=== PATIENT | female | born 1945 | race Caucasian/White ===

== ENCOUNTER → 2016-11-14 | Outpatient (CLI) | payer MEDICARE, OTHER ==
--- NOTE | 2016-11-14 10:20 | RAD ---
DATE: 11/14/2016 EXAM: MAMMO AMY SCREENING BILATERAL HISTORY: Screening. Note is made of the positive family history for breast malignancy. COMPARISON: 10/12/2015 This study was interpreted with the benefit of Computerized Aided Detection (CAD). FINDINGS: Breast Density: SCATTERED The breast parenchyma shows scattered fibroglandular densities. Breast parenchyma level B. There has not been a significant change in the appearance of the breasts compared to the previous exam IMPRESSION: Benign finding BI-RADS CATEGORY: 2 BENIGN FINDING(S) RECOMMENDED FOLLOW-UP: 12M 12 MONTH FOLLOW-UP PQRS compliance statement: Patient information was entered into a reminder system with a target due date 11/14/2017 for the next mammogram. Mammography is a sensitive method for finding small breast cancers, but it does not detect them all and is not a substitute for careful clinical examination. A negative mammogram does not negate a clinically suspicious finding and should not result in delay in biopsying a clinically suspicious abnormality. "Our facility is accredited by the [employer] Mammography Program."
== END | disposition home or self-care (01) ==
LOC: MAMMO 08:50
PROVIDERS: ATTEND Physician Assistant Medical
DX: Z12.31 Encounter for screening mammogram for malignant neoplasm of breast (principal)
CPT/HCPCS: 77063; G0202; 77067

== ENCOUNTER → 2017-05-06 | Outpatient (CLI) | payer MEDICARE, OTHER ==
--- NOTE | 2017-05-06 13:04 | RAD ---
DATE: 05/06/2017 EXAM: DIGITAL DIAGNOSTIC LT HISTORY: Left nipple discharge COMPARISON: 11/14/2016, 10/12/2015 This study was interpreted with the benefit of Computerized Aided Detection (CAD). The breast parenchyma shows scattered fibroglandular densities. Breast parenchyma level B. FINDINGS: 2-D and 3-D tomosynthesis imaging of the left breast was obtained in the CC and MLO projections. There are scattered fibroglandular densities in the breast in a nodular pattern. There are several discrete smooth nodules in the left breast which appear unchanged. No new or enlarging breast densities seen. There are multiple benign secretory type calcifications in the left breast. There are several additional scattered clusters of microcalcifications which are also unchanged. IMPRESSION: Stable left breast nodules and microcalcifications as described above. If a reproducible breast discharge is present, galactography may be considered for further evaluation. BI-RADS CATEGORY: 0 INCOMPLETE: NEEDS ADDITIONAL IMAGING EVALUATION AND/OR PRIOR MAMMOGRAMS FOR COMPARISON. RECOMMENDED FOLLOW-UP: ADD ADDITIONAL IMAGING PQRS compliance statement: Patient information was entered into a reminder system with a target due date for the next mammogram. Mammography is a sensitive method for finding small breast cancers, but it does not detect them all and is not a substitute for careful clinical examination. A negative mammogram does not negate a clinically suspicious finding and should not result in delay in biopsying a clinically suspicious abnormality. "Our facility is accredited by the [employer] Mammography [employer]."
== END | disposition home or self-care (01) ==
LOC: MAMMO 09:34
PROVIDERS: ATTEND Physician Assistant Medical
DX: N63.20 Unspecified lump in the left breast, unspecified quadrant (principal); N64.52 Nipple discharge; R92.0 Mammographic microcalcification found on diagnostic imaging of breast; R92.1 Mammographic calcification found on diagnostic imaging of breast
CPT/HCPCS: G0206; 77065

== ENCOUNTER → 2018-01-20 | Outpatient (CLI) | payer MEDICARE, OTHER ==
--- NOTE | 2018-01-20 11:45 | RAD ---
DATE: January 20, 2018 EXAM: MAMMO AMY SCREENING BILATERAL HISTORY: Routine screening. COMPARISON: Priors back to October 12, 2015. TECHNIQUE: 2D digital CC and MLO views were obtained. 3D tomosynthesis imaging was performed in the CC and MLO projections. This study was interpreted with the benefit of Computerized Aided Detection (CAD). FINDINGS: The breast parenchyma demonstrates scattered fibroglandular densities, category B. There is no worrisome mass or area of architectural distortion. Secretory and other benign-appearing calcifications are noted bilaterally. These are stable. There are postoperative findings of lumpectomy on the left, at the 3:00 position extending retroareolar. IMPRESSION: Benign findings. BI-RADS CATEGORY: 2 BENIGN FINDING RECOMMENDED FOLLOW-UP: 12M 12 MONTH FOLLOW-UP PQRS compliance statement: Patient information was entered into a reminder system with a target due date for the next mammogram. Mammography is a sensitive method for finding small breast cancers, but it does not detect them all and is not a substitute for careful clinical examination. A negative mammogram does not negate a clinically suspicious finding and should not result in delay in biopsying a clinically suspicious abnormality. "Our facility is accredited by the [employer] Mammography Program."
== END | disposition home or self-care (01) ==
LOC: MAMMO 09:55
PROVIDERS: ATTEND Physician Assistant Medical
DX: Z12.31 Encounter for screening mammogram for malignant neoplasm of breast (principal)
CPT/HCPCS: 77063; 77067

== ENCOUNTER → 2019-04-05 | Outpatient (CLI) | payer MEDICARE, OTHER ==
--- NOTE | 2019-04-05 09:23 | CARD ---
MR#: [id number] Date of Study: 04/05/2019 Ordering Physician: RADHA BOCANEGRA, Referring Physician: RADHA BOCANEGRA, Tech: Pamela Aden SHU APPROVED REPORT EXAM: Two-dimensional and M-mode echocardiogram with Doppler and color Doppler. Other Information Quality : AverageHR: 90bpm Rhythm : NSR INDICATION Chest Pain 2D DIMENSIONS RVDd3.0 (2.9-3.5cm)Left Atrium(2D)3.2 (1.6-4.0cm) IVSd1.1 (0.7-1.1cm)Aortic Root(2D)2.8 (2.0-3.7cm) LVDd4.8 (3.9-5.9cm)LVOT Diameter1.9 (1.8-2.4cm) PWd0.9 (0.7-1.1cm)LVDs3.4 (2.5-4.0cm) FS (%) 27.7 %SV56.5 ml LVEF(%)53.7 (>50%) M-Mode DIMENSIONS Left Atrium(MM)3.37 (2.5-4.0cm)Aortic Root3.23 (2.2-3.7cm) Aortic Valve AoV Peak Francis.143.2cm/Minoo Peak GR.8.2mmHg LVOT Peak Francis.103.4cm/sLVOT VTI 25.24cm RUTHIE (VMAX)2.41mt1TBJ (VTI)2.20cm2 Mitral Valve MV E Hgpstzgz22.0cm/sMV DECEL [id number] MV A Exiunipv057.0cm/sE/A Ratio0.8 Pulmonary Valve PV Peak Cqxtlkaq260.6cm/sPV Peak Grad.5mmHg Tricuspid Valve TR P. Qtwegvoi288yu/sRAP GDCETGKB1yuYl TR Peak Gr.24buAyGADP27wcJa LEFT VENTRICLE The left ventricle is normal size. There is normal left ventricular wall thickness. The left ventricu lar systolic function is normal. The Ejection Fraction is 55-60%. There is normal LV segmental wall m otion. Transmitral Doppler flow pattern is Grade I-abnormal relaxation pattern. RIGHT VENTRICLE The right ventricle is normal size. There is normal right ventricular wall thickness. The right ventr icular systolic function is normal. ATRIA The left atrium size is normal. The right atrium size is normal. The interatrial septum is intact wit h no evidence for an atrial septal defect or patent foramen ovale as noted on 2-D or Doppler imaging. AORTIC VALVE The aortic valve is normal in structure and function. The aortic valve is trileaflet. Doppler and Col or Flow revealed trace aortic regurgitation. There is no significant aortic valvular stenosis. There is no aortic valvular vegetation. MITRAL VALVE The mitral valve is normal in structure and function. There is no evidence of mitral valve prolapse. There is no mitral valve stenosis. Doppler and Color-flow revealed trace mitral regurgitation. TRICUSPID VALVE The tricuspid valve is normal in structure and function. Doppler and Color Flow revealed trace tricus pid regurgitation. The PA pressure was estimated at 28 mmHg. There is no tricuspid valve prolapse or vegetation. There is no tricuspid valve stenosis. PULMONIC VALVE The pulmonic valve is not well visualized. GREAT VESSELS The aortic root is normal in size. The ascending aorta is normal in size. The IVC is normal in size a nd collapses >50% with inspiration. PERICARDIAL EFFUSION There is no evidence of significant pericardial effusion. Critical Notification Critical Value: No <Conclusion> The left ventricular systolic function is normal. The Ejection Fraction is 55-60%. There is normal LV segmental wall motion. Transmitral Doppler flow pattern is Grade I-abnormal relaxation pattern. Trace mitral regurgitation. Trace tricuspid regurgitation. The PA pressure was estimated at 28 mmHg. There is no evidence of significant pericardial effusion. Signed by : Arnold Briscoe, Electronically Approved : 04/05/2019 09:23:13
== END | disposition home or self-care (01) ==
LOC: ECHO 07:49
PROVIDERS: ATTEND Internal Medicine Cardiovascular Disease
DX: R07.9 Chest pain, unspecified (principal)
CPT/HCPCS: 93306

== ENCOUNTER → 2019-04-06 | Outpatient (CLI) | payer MEDICARE, OTHER ==
--- NOTE | 2019-04-08 10:02 | RAD ---
DATE: 08/07/2018 EXAM: MAMMO AMY SCREENING BILATERAL HISTORY: Routine screening. Benign left breast biopsy in 2018. COMPARISON: 01/20/2018, 11/14/2016, 10/12/2015 mammographic exams This study was interpreted with the benefit of Computerized Aided Detection (CAD). Breast Density: HETERO The breast parenchyma is heterogenously dense, which could reduce sensitivity of mammography. Breast parenchyma level C. FINDINGS: Distortion involving the left breast is stable correspond to previous biopsy. No suspicious calcifications. No suspicious distortion. Small mass at the right upper outer breast posteriorly approximately 9 cm from the nipple is present. This may represent a lymph node although it is not definitely seen on prior exams. It measures 0.8 cm diameter. Small asymmetry is present lateral to this on the CC view. This asymmetry may present on prior exams. IMPRESSION: Right posterior upper outer breast mass which likely represents a lymph node. Asymmetry lateral to this finding on the CC projection noted. BI-RADS CATEGORY: 0 INCOMPLETE: NEEDS ADDITIONAL IMAGING EVALUATION AND/OR PRIOR MAMMOGRAMS FOR COMPARISON. FOLLOW-UP: ADD ADDITIONAL IMAGING. Spot compression imaging of the right upper-outer breast mass in the CC and MLO projections is recommended. Ultrasound of the right upper-outer breast may be needed. PQRS compliance statement: Patient information was entered into a reminder system with a target due date pending further imaging for the next mammogram. Mammography is a sensitive method for finding small breast cancers, but it does not detect them all and is not a substitute for careful clinical examination. A negative mammogram does not negate a clinically suspicious finding and should not result in delay in biopsying a clinically suspicious abnormality. "Our facility is accredited by the [employer] Mammography Program."
== END | disposition home or self-care (01) ==
LOC: MAMMO 08:37
PROVIDERS: ATTEND Physician Assistant Medical
DX: N63.11 Unspecified lump in the right breast, upper outer quadrant (principal)
CPT/HCPCS: 77063; 77067

== ENCOUNTER → 2019-04-26 | Outpatient (CLI) | payer MEDICARE, OTHER ==
--- NOTE | 2019-04-26 18:31 | RAD ---
DATE: 04/26/2019 EXAM: DIGITAL DIAGNOSTIC RT, BREAST RIGHT HISTORY: Abnormal mammogram COMPARISON: 10/12/2015, 11/14/2016, 01/20/2018 mammographic exams This study was interpreted with the benefit of Computerized Aided Detection (CAD). Breast Density: SCATTERED The breast parenchyma shows scattered fibroglandular densities. Breast parenchyma level B. FINDINGS: Persistence of the asymmetry at the outer aspect of the right breast is noted on spot compression imaging in the CC projection. A small lucency is noted within this structure which may represent a hilum of a lymph node. This asymmetry may have a finding on spot compression imaging in the upper right breast on the MLO view. These findings are smoothly marginated. A smaller asymmetry is identified persist but appears to be present on 01/20/2018. Limited ultrasound examination of the right upper-outer breast does not demonstrate a mass or nodule. IMPRESSION: Right upper outer breast asymmetry which may represent a lymph node. BI-RADS CATEGORY: 3 PROBABLY BENIGN FINDING(S)-SHORT INTERVAL FOLLOW-UP SUGGESTED RECOMMENDED FOLLOW-UP: 6M 6 MONTH FOLLOW-UP. Six-month follow-up mammographic examination of the right breast is recommended to assess stability. Ultrasound may be needed at that time. PQRS compliance statement: Patient information was entered into a reminder system with a target due date for the next mammogram. Mammography is a sensitive method for finding small breast cancers, but it does not detect them all and is not a substitute for careful clinical examination. A negative mammogram does not negate a clinically suspicious finding and should not result in delay in biopsying a clinically suspicious abnormality. "Our facility is accredited by the [employer] Mammography Program."
== END | disposition home or self-care (01) ==
LOC: MAMMO 12:20
PROVIDERS: ATTEND Physician Assistant Medical
DX: R92.2 Inconclusive mammogram (principal)
CPT/HCPCS: 76641; 77065

== ENCOUNTER 2019-10-26 13:42 | Inpatient (IN) | payer MEDICARE, OTHER ==
[~2019-10-26] VITALS: Ht 167.6 cm; Wt 93.1 kg
[2019-10-26 14:15] VITALS: BP 94/61
--- NOTE | 2019-10-26 14:37 | NUR ---
NURSING NOTE ADMIT PT DIRECT ADMIT FROM DR BAUMANN OFFICE WITH DX OF DEHYDRATION, DIARRHEA X 10 DAYS, INCREASE WBC COUNT. PT REPORTS WEIGHT LOSS OF ABOUT 10 POUNDS. PT STATES SHE HAS HAD DIARRHEA FOR TWO WEEKS, WAS SEEN TWICE, GIVEN FLUIDS, NO RELIEF. PT STATES SHE IS DIZZY AND LIGHT HEADED. PT STATES SHE HAS A DRY COUGH THAT STARTED 2 OR 3 DAYS AGO. PT VOICED SHORTNESS OF AIR WHEN MOVING FROM WHEELCHAIR TO BED BUT DENIED TO PHYSICIAN. PT IS ON ROOM AIR. PT SETTLED IN BED. DR OLAERY AT BEDSIDE. BANDAR LUJAN.
[2019-10-26 14:54] LABS: CALCIUM 8.9 mg/dL (8.5-10.1); CREATININE 3.8 mg/dL (0.6-1.0); GFR 11.7
[2019-10-26 15:00] LABS: ALBUMIN 2.3 g/dL (3.4-5.0); ALBUMIN/GLOBULIN RATIO 0.6 (1.0-1.7); TOTAL PROTEIN 6.3 g/dL (6.4-8.2)
[2019-10-26] MEDS ORDERED: IV NORMAL SALINE 1,000ML 1,000 ML IV ONE (15:00)
[2019-10-26] MEDS ORDERED: DEXTROSE 50% 25 GM / 50ML DISP.SYRIN. IV PRN (15:00)
[2019-10-26 15:03] LABS: POTASSIUM 4.7 mmol/L (3.5-5.1)
[2019-10-26 15:07] LABS: BASO # 0.1 x10^3/uL (0.0-0.2); BASO % 0 % (0-3); EOS # 0.2 x10^3/uL (0.0-0.7); EOS % 1 % (0-3); HEMATOCRIT 32.7 % (36.0-47.0); HEMOGLOBIN 10.6 g/dL (12.0-15.5); LYMPH # 1.4 x10^3/uL (1.0-4.8); LYMPH % 4 % (24-48); MEAN CORPUSCULAR HEMOGLOBIN 31 pg (25-35); MEAN CORPUSCULAR HGB CONC 33 g/dL (31-37); MEAN CORPUSCULAR VOLUME 95 fL (79-100); MONO # 0.9 x10^3/uL (0.0-1.1); MONO % 3 % (0-9); NEUT % 93 % (31-73); PLATELET COUNT 228 x10^3/uL (140-400); RED BLOOD COUNT 3.45 x10^6/uL (3.50-5.40); RED CELL DISTRIBUTION WIDTH 16.8 % (11.5-14.5)
[2019-10-26 15:15] LABS: WHITE BLOOD COUNT 33.5 x10^3/uL (4.0-11.0)
[2019-10-26] MEDS ORDERED: ASPI-630 PO (15:19)
[2019-10-26] MEDS ORDERED: ESTR0.45 PO (15:19)
[2019-10-26] MEDS ORDERED: GLIM4TAB8 PO (15:19)
[2019-10-26] MEDS ORDERED: ONDA8TAB17 PO (15:19)
[2019-10-26] MEDS ORDERED: LOSA25TA11 PO (15:19)
[2019-10-26] MEDS ORDERED: GABA100C6 PO (15:19)
[2019-10-26] MEDS ORDERED: IRON1CAP14 PO (15:19)
[2019-10-26] MEDS ORDERED: CYAN25003 SL (15:19)
[2019-10-26] MEDS ORDERED: ACET325T21 PO (15:19)
[2019-10-26] MEDS ORDERED: COLC0.6T42 PO (15:19)
[2019-10-26] MEDS ORDERED: ALLO300T PO (15:19)
[2019-10-26] MEDS ORDERED: ESOM40CA PO (15:19)
[2019-10-26] MEDS: IV NORMAL SALINE 1,000ML 1,000 ML IV SCH (15:27)
[2019-10-26] MEDS ORDERED: ACETAMINOPHEN 325 MG TABLET PO PRN (15:30)
--- NOTE | 2019-10-26 15:33 | HP ---
ADMIT DATE: 10/26/2019 HISTORY OF PRESENT ILLNESS: The patient is a 74-year-old female patient who was admitted directly from her primary care physician's office and she has had diarrhea that has been going on for almost 2 weeks. It is not associated with any nausea or vomiting. There is no blood in the stool. Denied any abdominal pain. Denied any chills, rigors or fever. Did complain of dizziness and lightheadedness. The patient stated that all this started about more than 2 weeks ago when she was diagnosed with severe sinusitis and was given treatment with antibiotic that she cannot remember. She completed a 10-day course of it and after which her symptoms continued; therefore, she was started on ciprofloxacin 500 mg twice a day. She has started having diarrhea about 2 weeks ago and has not really subsided. Attempts have been made to treat her as an outpatient, but the patient continued to have severe diarrhea, which is watery in nature and therefore, she was admitted directly for rehydration and stool was sent for C. diff toxin, the result of which is still pending at the time of this dictation. PAST MEDICAL HISTORY: Significant for insulin requiring type 2 diabetes mellitus and hypertension. He has diabetic neuropathy and what seems to be also diabetic autonomic neuropathy. She has also chronic kidney disease. She is also known to have hyperlipidemia, obesity, and has had prior history of melena and anemia. PAST SURGICAL HISTORY: Significant for bilateral cataract extraction, cholecystectomy, total abdominal hysterectomy, bilateral salpingo-oophorectomy. She has also had appendectomy and had a left breast mass with normal biopsy. FAMILY HISTORY: She has 2 brothers, 1 older and has some form of spinal cord embolism and the other one is younger and has had a history of myocardial infarction. Her father at age of 72 because of lung cancer. Mother at age of 58 because of breast cancer. SOCIAL HISTORY: She is and lives with her . She has one daughter. She smoked for 2 years now when she was 19 and 20 years old. She does not drink alcohol or use any recreational drugs. She worked for the [employer] at [place]. She is currently retired. REVIEW OF SYSTEMS: The patient denied any blurring of vision, has had bilateral cataract extraction, but denied any glaucoma or macular degeneration. Denied any earache, tinnitus or sensorineural deafness. Denied any nosebleeds, stuffy nose or postnasal drip. Denied any sore throat, sore tongue, toothache, hoarseness of voice or difficulty swallowing. Denied any nausea, vomiting, but has persistent diarrhea that has been going on. Denied any melena or hematochezia. Denied any dysuria, frequency or hematuria. Denied any chest pain, shortness of breath, orthopnea, paroxysmal nocturnal dyspnea. Did complain of cough that started only 2 days ago, which was mostly dry. Denied any chills, rigors, or fever. She did complain of dizziness and lightheadedness, but denied any vertigo. PHYSICAL EXAMINATION: GENERAL: When I saw her this afternoon, she was resting slightly propped up in bed. She was pale, but no jaundice, cyanosis or thyromegaly. No jugular venous distention. No lower limb. VITAL SIGNS: Her heart rate was 100, blood pressure 94/61, respiratory rate 22, temperature 97.6 and her oxygen saturation was 100% on room air. HEAD, EYES, EARS, NOSE AND THROAT: Showed normocephalic, atraumatic. NECK: Supple. HEART: Showed normal first and second heart sounds with no gallop, rub or murmur. CHEST: Clear to auscultation. No crepitation or rhonchi. ABDOMEN: Distended, soft, nontender. NEUROLOGIC: She is awake, alert, responding appropriately. All cranial nerves intact. EXTREMITIES: She moves extremities without difficulty. She ambulates without assistance or assistive devices. LABORATORY DATA: Her lab work done yesterday showed her white cell count was 28,000, her hemoglobin was 11, hematocrit 32, MCV was 91, and a platelet count of 189,000 with a manual differential showed 88% polymorphs, 4% lymphocytes, and 6% monocytes. Her chemistry showed that her serum sodium was 134, her potassium was 4.9, chloride 99, bicarbonate was 18. Calcium was 9.1. Total bilirubin 1.3. AST, ALT, alkaline phosphatase were all normal. Her total protein was 6.2, albumin was 3.5. PLAN: My plan is to start her on IV fluid. We will send stat labs including CBC, CMP and lactic acid. Also we are going to have a CT scan of the chest, abdomen and pelvis without contrast and if there are any changes in her lungs consistent of ground glass appearance, we COVID-19 by PCR. We will keep her on isolation for now and await the result also for the C. diff and if there is any evidence of wall thickening of the colon, I will start her empirically on vancomycin until we get the result of the C. diff toxins. We will start her also on IV fluid. KAPIL OLEARY MD DR: JUANITO/nikolas JOB#: [id number] / [id number]
[2019-10-26 15:39] LABS: % BANDS 5 % (0-9); % LYMPHS 5 % (24-48); % MONOS 3 % (0-10); % SEGS 87 % (35-66); PLT ESTIMATE ADEQUATE (ADEQUATE)
--- NOTE | 2019-10-26 15:47 | RAD ---
Examination: CT of the chest abdomen pelvis without contrast HISTORY: History of cough, intractable diarrhea COMPARISON: None available Technique: Axial CT images of the chest abdomen pelvis were performed without IV contrast. Coronal and sagittal images are performed Exposure: One or more of the following individualized dose reduction techniques were utilized for this examination: 1. Automated exposure control 2. Adjustment of the mA and/or kV according to patient size 3. Use of iterative reconstruction technique FINDINGS: The central airways are patent. The heart size grossly appears unremarkable. No radiologically significant mediastinal lymphadenopathy identified. Scattered subcentimeter lymph nodes identified in the bilateral lungs the largest measuring 5 mm in the left lower lobe of the lung. No evidence of pleural effusion or pneumothorax. No evidence of free air identified in the abdomen. The evaluation of the solid organs is limited due to lack of IV contrast. The evaluation of bowel is limited due to lack of oral contrast.. The visualized liver, spleen, adrenals grossly appears unremarkable. Small perihepatic, perisplenic fluid is identified. The visualized pancreas grossly appears unremarkable. The small bowel is nondilated. There is moderate diffuse thickening of the wall of the colon throughout with surrounding infiltrative fat stranding likely diffuse colitis. The appendix is not well-visualized. Small amount of free fluid identified in the pelvis. Urinary bladder is mildly distended. No evidence of intrarenal collecting system calculi or hydronephrosis. There is a small hypodensity identified in the right kidney measuring 9 mm probably hyperdense cyst. Moderate degenerative changes thoracic and lumbar spine. Mild sclerosis identified in the right and left femoral heads could be avascular necrosis. Impression: 1. Diffuse thickening of the wall of the colon with surrounding inflammatory fat stranding likely diffuse colitis/infectious or inflammatory or pseudomembranous colitis. Correlate with lab values. 2. Mild ascites. 3. Few scattered bilateral subcentimeter nodules identified in the lungs with the largest measuring 5 mm in the left lobe of the lung. Follow-up in 6 months per Fleischner Society guidelines. 4. Small hyperdense cyst left kidney. Electronically signed by: Jovon Thakur MD (10/26/2019 3:44 PM) [id number]
[2019-10-26] MEDS ORDERED: ONDANSETRON ODT 4 MG TAB.RAPDIS PO PRN (16:00)
--- NOTE | 2019-10-26 16:00 | NUR ---
NURSING NOTE SEPSIS SCREEN BLOOD CULTURES ORDERED. NO IV ANTIBIOTICS NEED AT THIS TIME PER DR OLEARY. WILL ORDER PO VANCO. PT HAD RECEIVED 1 LITER BOLUS UPON ARRIVAL. CURRENTLY ON NS AT 125/HR. WILL CONTINUE TO MONITOR. BANDAR LUJAN.
[2019-10-26] MEDS: INSULIN LISPRO 300 UNITS/3 ML VIAL. SQ SCH (16:56)
[2019-10-26] MEDS: VANCOMYCIN 125 MG/2.5 ML ORAL SOLUTION. PO SCH ×2 (17:20→20:51)
[2019-10-26 17:27] VITALS: BP 100/65
[2019-10-26] MEDS: GABAPENTIN 100 MG CAPSULE. PO SCH (20:51)
[2019-10-26 21:53] VITALS: BP 102/61
[2019-10-27] MEDS: IV NORMAL SALINE 1,000ML 1,000 ML IV SCH ×4 (00:10→22:49)
[2019-10-27 05:57] LABS: HEMATOCRIT 27.2 % (36.0-47.0); HEMOGLOBIN 8.9 g/dL (12.0-15.5); RED BLOOD COUNT 2.9 x10^6/uL (3.50-5.40); RED CELL DISTRIBUTION WIDTH 16.2 % (11.5-14.5); WHITE BLOOD COUNT 23.5 x10^3/uL (4.0-11.0)
[2019-10-27 06:10] LABS: ALBUMIN 1.8 g/dL (3.4-5.0); ALBUMIN/GLOBULIN RATIO 0.6 (1.0-1.7); CREATININE 3.3 mg/dL (0.6-1.0); GFR 13.7; POTASSIUM 3.9 mmol/L (3.5-5.1); TOTAL BILIRUBIN 0.5 mg/dL (0.2-1.0)
[2019-10-27 06:30] VITALS: BP 89/56
[2019-10-27] MEDS: INSULIN LISPRO 300 UNITS/3 ML VIAL. SQ SCH ×3 (08:00→17:00)
[2019-10-27] MEDS: PANTOPRAZOLE 40 MG TABLET. PO SCH (08:01)
[2019-10-27] MEDS: GLIMEPIRIDE 2 MG TABLET PO SCH (08:02)
[2019-10-27] MEDS: VANCOMYCIN 125 MG/2.5 ML ORAL SOLUTION. PO SCH ×4 (08:02→20:40)
[2019-10-27] MEDS: LACTOBACILLUS RHAMNOSUS GG 1 CAPSULE. PO SCH (08:02)
[2019-10-27] MEDS: ASPIRIN CHEWABLE 81 MG TABLET. PO SCH (08:02)
[2019-10-27] MEDS: CYANOCOBALAMIN (VITAMIN B-12) 1,000 MCG TABLET. PO SCH (08:03)
[2019-10-27] MEDS: ALLOPURINOL 100 MG TABLET. PO SCH (08:04)
[2019-10-27 08:15] VITALS: BP 90/56
[2019-10-27] MEDS: ESTROGENS CONJUGATED PO SCH (08:19)
[2019-10-27] MEDS ORDERED: IV NORMAL SALINE 1,000ML 1,000 ML IV ONE (08:45)
[2019-10-27] MEDS ORDERED: NON FORMULARY ITEM (Esomeprazole Magnesium (Nexium Capsule) 1 CAP) PO SCH (09:00)
--- NOTE | 2019-10-27 09:04 | NUR ---
NURSING NOTE PT BLOOD PRESSURE THIS AM WAS LOW, RECHECKED AFTER SHIFT CHANGE, PT FEELS DIZZY, SPOKE WITH DR OLEARY, ORDER OBTAINED FOR 1 LITER BOLUS. FINISHING UP NOW, WILL CONTINUE TO MONITOR. BANDAR LUJAN.
[2019-10-27 09:51] VITALS: BP 95/60
--- NOTE | 2019-10-27 11:43 | PN ---
DATE: 10/27/2019 SUBJECTIVE: The patient is resting, slightly propped up in bed, no apparent distress, sleepy but arousable on questioning her. She obviously continued to have diarrhea, although much less than yesterday. Denied any abdominal pain. Denied any nausea, vomiting; however, she continued to have anorexia and poor oral intake. PHYSICAL EXAMINATION: GENERAL: When I examined her, she looked pale, but no jaundice, cyanosis or thyromegaly. No jugular venous distention. No lower limb edema. VITAL SIGNS: Her heart rate was 92, blood pressure was 95/60, temperature was 98.1, respiratory rate was 18 and oxygen saturation was 99% on room air. HEAD, EYES, EARS, NOSE AND THROAT: Showed normocephalic, atraumatic. NECK: Supple. CARDIAC: Normal first and second heart sounds. No gallop, rub or murmur. CHEST: Clear to auscultation. No crepitation or rhonchi. ABDOMEN: Distended, soft, nontender. No guarding or rigidity. No organomegaly. All hernial orifices intact. Bowel sounds normal. NEUROLOGIC: She is awake, alert, responding appropriately. All cranial nerves intact. She moves extremities without difficulty. Her intake over the last 24 hours and output were incompletely recorded. LABORATORY DATA: Her lab work this morning showed a serum sodium of 132, potassium 3.9, chloride 100, bicarbonate 21, anion gap of 11, BUN 57, creatinine 3.3, estimated GFR was 13.7 mL. Her glucose was 48, calcium was 8. Total bilirubin, AST, ALT, alkaline phosphatase were normal. Total protein was 5 and albumin was 1.8. Her white cell count is down to 23,500, hemoglobin 8.9, hematocrit 27, MCV 94 and platelet count of 172,000. ASSESSMENT: 1. Intractable diarrhea, most likely due to Clostridium difficile colitis. 2. Acute on chronic kidney injury, resolving. Her creatinine is coming down from 3.8 to 3.3. 3. Hyponatremia, improved. Her serum sodium went up from 127 to 132. OTHER MEDICAL PROBLEMS: Include: A. Insulin-requiring type 2 diabetes mellitus. B. Hypertension, however, the patient is hypotensive. C. Diabetic neuropathy and also diabetic autonomic neuropathy. D. Hyperlipidemia as well as normochromic normocytic anemia. PLAN: To continue with IV fluid. The patient was given another liter of normal saline bolus and increase at a rate of 150 mL per hour. Continue with oral vancomycin 125 mg 4 times a day together with probiotic and other medications. Continue to monitor blood sugar and adjust insulin as needed. KAPIL OLEARY MD DR: JUANITO/nikolas JOB#: [id number] / [id number]
[2019-10-27 12:51] LABS: BILIRUBIN,URINE NEG (NEG); CLARITY,URINE HAZY; COLOR,URINE YELLOW; GLUCOSE,URINE NEG (NEG); NITRITE,URINE NEG (NEG); UROBILINOGEN,URINE 0.2 mg/dL (0.2 mg/dL)
[2019-10-27 12:52] LABS: BACTERIA,URINE FEW /HPF (0-FEW); HYALINE CASTS, URINE FEW /HPF; SQUAMOUS EPITHELIAL CELL,UR MANY /LPF
[2019-10-27 15:28] VITALS: BP 102/66
[2019-10-27 19:00] VITALS: BP 99/65
[2019-10-27] MEDS: GABAPENTIN 100 MG CAPSULE. PO SCH (20:40)
[2019-10-27 22:59] VITALS: BP 98/63
[2019-10-28] MEDS: IV NORMAL SALINE 1,000ML 1,000 ML IV SCH ×3 (03:17→21:23)
[2019-10-28 05:59] VITALS: BP 91/58
[2019-10-28 06:22] LABS: HEMATOCRIT 27.6 % (36.0-47.0); RED BLOOD COUNT 2.91 x10^6/uL (3.50-5.40); RED CELL DISTRIBUTION WIDTH 16.6 % (11.5-14.5); WHITE BLOOD COUNT 18.5 x10^3/uL (4.0-11.0)
[2019-10-28 06:28] LABS: ALBUMIN 1.6 g/dL (3.4-5.0); ALBUMIN/GLOBULIN RATIO 0.5 (1.0-1.7); CALCIUM 7.9 mg/dL (8.5-10.1); GFR 15.3; POTASSIUM 4.1 mmol/L (3.5-5.1); TOTAL BILIRUBIN 0.4 mg/dL (0.2-1.0); TOTAL PROTEIN 4.9 g/dL (6.4-8.2)
[2019-10-28] MEDS: INSULIN LISPRO 300 UNITS/3 ML VIAL. SQ SCH ×3 (08:00→17:00)
[2019-10-28] MEDS: PANTOPRAZOLE 40 MG TABLET. PO SCH (08:10)
[2019-10-28] MEDS: ASPIRIN CHEWABLE 81 MG TABLET. PO SCH (08:10)
[2019-10-28] MEDS: LACTOBACILLUS RHAMNOSUS GG 1 CAPSULE. PO SCH (08:10)
[2019-10-28] MEDS: GLIMEPIRIDE 2 MG TABLET PO SCH (08:10)
[2019-10-28] MEDS: CYANOCOBALAMIN (VITAMIN B-12) 1,000 MCG TABLET. PO SCH (08:11)
[2019-10-28] MEDS: ALLOPURINOL 100 MG TABLET. PO SCH (08:11)
[2019-10-28] MEDS: VANCOMYCIN 125 MG/2.5 ML ORAL SOLUTION. PO SCH ×4 (08:27→21:22)
[2019-10-28] MEDS: ESTROGENS CONJUGATED PO SCH (09:00)
[2019-10-28 12:16] VITALS: BP 119/73
[2019-10-28 15:00] VITALS: BP 98/62
--- NOTE | 2019-10-28 16:09 | PN ---
DATE: 10/28/2019 SUBJECTIVE: The patient is resting, slightly propped up in bed, no apparent distress. She denied any nausea or vomiting. She has no pain as she was sitting in her bed, although she does have some pain when she moves. She continues to have some dizziness or lightheadedness. Has had 3 loose bowel movements today. She is making more urine, now it is little bit darker. PHYSICAL EXAMINATION: GENERAL: When I saw her this morning, she looked pale, not jaundiced, cyanosis or thyromegaly. No jugular venous distention. No limb edema. VITAL SIGNS: Her heart rate was 100, blood pressure was 119/73, temperature was 98, respiratory rate 20, and oxygen saturation was 99%. HEAD, EYES, EARS, NOSE AND THROAT: Showed normocephalic, atraumatic. NECK: Supple. HEART: Showed normal first and second heart sounds. No gallop, rub or murmur. CHEST: Clear to auscultation. No crepitation or rhonchi. ABDOMEN: Distended, soft. Very mild tenderness. No guarding or rigidity. No organomegaly. All hernial orifice intact. Bowel sounds normal. NEUROLOGIC: She is awake, alert, responding appropriately. All cranial nerves intact. She moves extremities without difficulty. She ambulates without assistance or assistive devices. Her intake over the last 24 hours was 1000, output was ____. LABORATORY DATA: Her lab work this morning showed a white cell count of 18,500, hemoglobin 9, hematocrit 27, MCV 95, and a platelet count of 158,000. Serum sodium is 132, potassium 4.1, chloride 102, bicarbonate 19, anion gap of 11, BUN 55, creatinine 3. Her blood glucose 177, calcium was 7.9. Total bilirubin, AST, ALT, alkaline phosphatase were normal. Total protein was 4.9, albumin was 1.6. Urinalysis was essentially unremarkable. Her blood cultures are so far negative. Her stool for C. diff was positive; however, was negative for DICTATION ENDS HERE KAPIL OLEARY MD DR: JUANITO/nikolas JOB#: [id number] / [id number]
[2019-10-28] MEDS: SALIVA STIMULANT AGENT 44ML SPRAY BOTTLE. PO PRN ×2 (17:13→21:21)
--- NOTE | 2019-10-28 17:55 | NUR ---
NURSING NOTE PATIENT SPENT MOST OF THE DAY IN A BED, PT C/O WEAKNESS AND DIZZINESS, NEED ASSIST X 1 WITH ADLS. PATIENT STATED HER MOUTH IS DRY AND REQUESTED ORAL MOISTURIZER. BIOTIN ORAL STRAY ORDERED. PT C/O ABDOMINAL PAIN, THAT IS TENDER TO TOUCH. ABDOMEN APPEARS DISTENDED. PATIENT HAD BOWEL MOVEMENT X 3 THIS SHIFT LOOSE WATERY STOOL, NO BLOOD PRESENT. CONTINUE TO MONITOR.
[2019-10-28 19:25] VITALS: BP 117/60
[2019-10-28] MEDS: CHOLESTYRAMINE/ASPARTAME 4 GM PACKET PO SCH (21:21)
[2019-10-28] MEDS: GABAPENTIN 100 MG CAPSULE. PO SCH (21:21)
[2019-10-28 23:46] VITALS: BP 94/53
[2019-10-29] MEDS: IV NORMAL SALINE 1,000ML 1,000 ML IV SCH ×2 (03:42→07:59)
[2019-10-29 06:27] VITALS: BP 107/58
[2019-10-29 07:05] LABS: HEMATOCRIT 27.5 % (36.0-47.0); RED BLOOD COUNT 2.87 x10^6/uL (3.50-5.40); RED CELL DISTRIBUTION WIDTH 16.6 % (11.5-14.5); WHITE BLOOD COUNT 19.2 x10^3/uL (4.0-11.0)
[2019-10-29 07:14] LABS: ALBUMIN 1.7 g/dL (3.4-5.0); ALBUMIN/GLOBULIN RATIO 0.5 (1.0-1.7); CREATININE 3.1 mg/dL (0.6-1.0); GFR 14.8; POTASSIUM 4.1 mmol/L (3.5-5.1); TOTAL BILIRUBIN 0.6 mg/dL (0.2-1.0); TOTAL PROTEIN 4.9 g/dL (6.4-8.2)
[2019-10-29] MEDS: INSULIN LISPRO 300 UNITS/3 ML VIAL. SQ SCH ×3 (07:56→17:00)
[2019-10-29] MEDS: ASPIRIN CHEWABLE 81 MG TABLET. PO SCH (07:57)
[2019-10-29] MEDS: PANTOPRAZOLE 40 MG TABLET. PO SCH (07:57)
[2019-10-29] MEDS: LACTOBACILLUS RHAMNOSUS GG 1 CAPSULE. PO SCH (07:57)
[2019-10-29] MEDS: GLIMEPIRIDE 2 MG TABLET PO SCH (07:57)
[2019-10-29] MEDS: ALLOPURINOL 100 MG TABLET. PO SCH (07:57)
[2019-10-29] MEDS: VANCOMYCIN 125 MG/2.5 ML ORAL SOLUTION. PO SCH ×4 (07:58→21:00)
[2019-10-29] MEDS: CYANOCOBALAMIN (VITAMIN B-12) 1,000 MCG TABLET. PO SCH (07:58)
[2019-10-29] MEDS: CHOLESTYRAMINE/ASPARTAME 4 GM PACKET PO SCH ×2 (07:58→21:44)
[2019-10-29] MEDS: ESTROGENS CONJUGATED PO SCH (07:58)
--- NOTE | 2019-10-29 10:19 | NUR ---
Pt's PCP Supriya Ga PA-C called the specimen she sent from her office came back positive for CDiff. Dr. Cohen notified.
[2019-10-29 10:34] VITALS: BP 100/58
--- NOTE | 2019-10-29 14:39 | NUR ---
Patient bladder scanned and showing >500. Order for Hernandez cath per Dr. Cohen. 16F hernandez placed with 10cc balloon.
--- NOTE | 2019-10-29 14:41 | PN ---
DATE: 10/29/2019 SUBJECTIVE: The patient is resting slightly propped up in bed, in no apparent respiratory distress. On questioning her, she did complain of being weak, but denied any chest pain or shortness of breath. PHYSICAL EXAMINATION: GENERAL: When I examined her, she was pale, but no jaundice, cyanosis or thyromegaly. No jugular venous distention. No limb edema. VITAL SIGNS: Her heart rate was 110, blood pressure was 100/58, temperature was 98.9, respiratory rate was 20, and oxygen saturation was actually 100% on room air. HEAD, EYES, EARS, NOSE AND THROAT: Showed normocephalic, atraumatic. NECK: Supple. HEART: Showed normal first and second heart sounds. No gallop or murmur. CHEST: Clear to auscultation. No crepitation or rhonchi. ABDOMEN: Distended, soft with tympanitic percussion note. She has some dullness in the lower abdomen, suprapubic area and both right and left quadrant area. NEUROLOGIC: She is awake, alert, responding appropriately. All cranial nerves intact. She moves extremities without difficulty. She ambulates without assistance or assistive devices. Her intake over the last 24 hours was 2600, no output was recorded. LABORATORY DATA: Her lab work this morning showed her serum sodium is slightly down at 131, potassium 4.1, chloride 103, bicarbonate 16, anion gap of 12, BUN 54, creatinine 3.1. Her blood glucose was reasonably controlled. Calcium was 8. Total bilirubin, AST, ALT, alkaline phosphatase were normal. Total protein was 4.6, albumin was 1.7. White cell count was 19,200, hemoglobin 9, hematocrit 27, MCV was 96, and platelet count of 163,000. Her urinalysis was essentially unremarkable. Her blood cultures showed no growth after 2 days. Her stool for C. diff was positive, but the stool for Salmonella, Shigella and Campylobacter was all negative. ASSESSMENT: 1. Intractable diarrhea due to Clostridium difficile toxins slightly improved. 2. Acute on chronic kidney injury. Her creatinine came down from 3.8 to 3. Fortunately, creatinine for some reason has risen up to 3.1 3. Hyponatremia has improved from 127 to 131. 4. Other medical problems include: A. Insulin-requiring type 2 diabetes mellitus. B. Hypertension. C. Diabetic neuropathy as well as diabetic autonomic neuropathy. D. Hyperlipidemia. E. Normochromic normocytic anemia. PLAN: My plan is to continue with IV fluid. We did scan her bladder and seems she is retaining urine, so we can put her an indwelling Masterson catheter. Meanwhile, we will continue with IV fluid and if her kidney function continues to do poorly, I will arrange for her to have ultrasound to make sure that does not have any obstruction. Her CT scan showed that there is no evidence of intrarenal collecting system calculi or hydronephrosis. There is small hypodensity identified in the right kidney measuring 9 mm, probably hyperdense cyst, but no evidence of obstruction. KAPIL OLEARY MD DR: JUANITO/nikolas JOB#: [id number] / [id number]
[2019-10-29 16:02] VITALS: BP 105/63
[2019-10-29 19:35] VITALS: BP 102/60
[2019-10-29] MEDS: GABAPENTIN 100 MG CAPSULE. PO SCH (21:44)
[2019-10-29 23:20] VITALS: BP 100/66
[2019-10-30] MEDS: IV NORMAL SALINE 1,000ML 1,000 ML IV SCH ×3 (00:26→20:24)
[2019-10-30 04:54] VITALS: BP 116/66
[2019-10-30 06:10] LABS: HEMATOCRIT 26.8 % (36.0-47.0); HEMOGLOBIN 8.8 g/dL (12.0-15.5); RED BLOOD COUNT 2.85 x10^6/uL (3.50-5.40); RED CELL DISTRIBUTION WIDTH 16.7 % (11.5-14.5); WHITE BLOOD COUNT 18.3 x10^3/uL (4.0-11.0)
[2019-10-30 06:16] LABS: ALBUMIN 1.7 g/dL (3.4-5.0); ALBUMIN/GLOBULIN RATIO 0.5 (1.0-1.7); CALCIUM 8.3 mg/dL (8.5-10.1); GFR 15.3; POTASSIUM 4.2 mmol/L (3.5-5.1); TOTAL BILIRUBIN 0.5 mg/dL (0.2-1.0); TOTAL PROTEIN 5.1 g/dL (6.4-8.2)
[2019-10-30] MEDS: CHOLESTYRAMINE/ASPARTAME 4 GM PACKET PO SCH ×2 (08:00→20:24)
[2019-10-30] MEDS: CYANOCOBALAMIN (VITAMIN B-12) 1,000 MCG TABLET. PO SCH (08:00)
[2019-10-30] MEDS: INSULIN LISPRO 300 UNITS/3 ML VIAL. SQ SCH ×3 (08:00→17:03)
[2019-10-30] MEDS: ALLOPURINOL 100 MG TABLET. PO SCH (08:00)
[2019-10-30] MEDS: PANTOPRAZOLE 40 MG TABLET. PO SCH (08:00)
[2019-10-30] MEDS: GLIMEPIRIDE 2 MG TABLET PO SCH (08:00)
[2019-10-30] MEDS: LACTOBACILLUS RHAMNOSUS GG 1 CAPSULE. PO SCH (08:00)
[2019-10-30] MEDS: VANCOMYCIN 125 MG/2.5 ML ORAL SOLUTION. PO SCH ×4 (08:01→20:24)
[2019-10-30] MEDS: ASPIRIN CHEWABLE 81 MG TABLET. PO SCH (08:01)
[2019-10-30] MEDS: ESTROGENS CONJUGATED PO SCH (08:02)
--- NOTE | 2019-10-30 11:49 | PN ---
DATE: 10/30/2019 SUBJECTIVE: The patient is resting, slightly propped up in bed, in no apparent distress. She continued to complain of being weak and dizzy. She has one loose bowel movement. Her appetite is improving, eating more. The abdomen continued to be distended. PHYSICAL EXAMINATION: GENERAL: When I examined her, she was pale, but no jaundice, cyanosis or thyromegaly. No jugular venous distention. No limb edema. VITAL SIGNS: Her heart rate was 40, blood pressure was 116/66, temperature 98.7, respiratory rate was 20, and oxygen saturation was 92% on room air. HEAD, EYES, EARS, NOSE AND THROAT: Normocephalic, atraumatic. NECK: Supple. HEART: Showed normal first and second sounds. No gallop, rub or murmur. CHEST: Clear to auscultation. No crepitation or rhonchi. ABDOMEN: Distended, soft. There is no tenderness. No guarding or rigidity. No organomegaly. All hernial orifice intact. Bowel sounds normal. NEUROLOGIC: She is awake, alert, responding appropriately. All cranial nerves intact. She moves extremities without difficulty. She ambulates without assistance or assistive devices. Her intake over the last 24 hours was 2618. No output was recorded. LABORATORY DATA: Her lab work this morning showed a white cell count of 18,300, hemoglobin 8.8, hematocrit 27, MCV 94 and platelet count of 176,000. Her chemistry this morning showed a serum sodium 131, potassium 4.2, chloride 103, bicarbonate 13, anion gap of 15, BUN 52, creatinine 3, estimated GFR was 15 mL per minute. Her glucose was 96, calcium was 8.3. Total bilirubin, AST, ALT, alkaline phosphatase are normal. Total protein 5.1, albumin was 1.7. ASSESSMENT: 1. Intractable diarrhea due to Clostridium difficile toxin slightly improved. 2. Acute on chronic kidney injury. Her creatinine came down from 3.83 and unfortunately plateaus there. 3. Hyponatremia, has improved from 127 to 131. 4. Other medical problems include: A. Insulin-requiring type 2 diabetes mellitus. B. Hypertension. C. Diabetic neuropathy as well as diabetic autonomic neuropathy. D. Hyperlipidemia. E. Normochromic normocytic anemia. F. She has also high anion gap acidosis. I will add some sodium bicarbonate and if there is no dramatic change I will arrange for her to have CT scan of the abdomen and pelvis tomorrow without contrast. KAPIL OLEARY MD DR: JUANITO/nikolas JOB#: [id number] / [id number]
[2019-10-30 11:50] VITALS: BP 132/68
[2019-10-30] MEDS: SODIUM BICARBONATE 650 MG TABLET PO SCH ×2 (15:22→20:24)
[2019-10-30 18:01] VITALS: BP 108/65
[2019-10-30 20:00] VITALS: BP 113/70
[2019-10-30] MEDS: GABAPENTIN 100 MG CAPSULE. PO SCH (20:24)
[2019-10-30 23:25] VITALS: BP 106/58
[2019-10-31] MEDS: IV NORMAL SALINE 1,000ML 1,000 ML IV SCH ×2 (05:42→15:42)
[2019-10-31 06:28] LABS: HEMATOCRIT 25.3 % (36.0-47.0); HEMOGLOBIN 8.2 g/dL (12.0-15.5); RED BLOOD COUNT 2.65 x10^6/uL (3.50-5.40); RED CELL DISTRIBUTION WIDTH 16.9 % (11.5-14.5)
[2019-10-31 06:40] LABS: CALCIUM 8.1 mg/dL (8.5-10.1); CREATININE 2.8 mg/dL (0.6-1.0); GFR 16.6; POTASSIUM 4.3 mmol/L (3.5-5.1)
[2019-10-31] MEDS: LACTOBACILLUS RHAMNOSUS GG 1 CAPSULE. PO SCH (07:47)
[2019-10-31] MEDS: SODIUM BICARBONATE 650 MG TABLET PO SCH ×3 (07:47→20:50)
[2019-10-31] MEDS: ALLOPURINOL 100 MG TABLET. PO SCH (07:48)
[2019-10-31] MEDS: PANTOPRAZOLE 40 MG TABLET. PO SCH (07:48)
[2019-10-31] MEDS: VANCOMYCIN 125 MG/2.5 ML ORAL SOLUTION. PO SCH ×4 (07:48→20:50)
[2019-10-31] MEDS: CHOLESTYRAMINE/ASPARTAME 4 GM PACKET PO SCH ×2 (07:48→20:50)
[2019-10-31] MEDS: GLIMEPIRIDE 2 MG TABLET PO SCH (07:48)
[2019-10-31] MEDS: ASPIRIN CHEWABLE 81 MG TABLET. PO SCH (07:48)
[2019-10-31] MEDS: CYANOCOBALAMIN (VITAMIN B-12) 1,000 MCG TABLET. PO SCH (07:49)
[2019-10-31] MEDS: INSULIN LISPRO 300 UNITS/3 ML VIAL. SQ SCH ×3 (07:50→17:00)
[2019-10-31 08:18] VITALS: BP 105/59
[2019-10-31] MEDS: ESTROGENS CONJUGATED PO SCH (09:00)
[2019-10-31 11:15] VITALS: BP 102/60
[2019-10-31 15:20] VITALS: BP 107/67
[2019-10-31 19:37] VITALS: BP 112/69
[2019-10-31] MEDS: GABAPENTIN 100 MG CAPSULE. PO SCH (20:50)
[2019-10-31 22:58] VITALS: BP 102/66
[2019-11-01] MEDS: IV NORMAL SALINE 1,000ML 1,000 ML IV SCH ×2 (01:20→12:03)
[2019-11-01 05:17] VITALS: BP 106/59
[2019-11-01] MEDS: INSULIN LISPRO 300 UNITS/3 ML VIAL. SQ SCH ×3 (08:00→17:32)
[2019-11-01] MEDS: ALLOPURINOL 100 MG TABLET. PO SCH (08:27)
[2019-11-01] MEDS: PANTOPRAZOLE 40 MG TABLET. PO SCH (08:27)
[2019-11-01] MEDS: CYANOCOBALAMIN (VITAMIN B-12) 1,000 MCG TABLET. PO SCH (08:27)
[2019-11-01] MEDS: ASPIRIN CHEWABLE 81 MG TABLET. PO SCH (08:28)
[2019-11-01] MEDS: GLIMEPIRIDE 2 MG TABLET PO SCH (08:28)
[2019-11-01] MEDS: SODIUM BICARBONATE 650 MG TABLET PO SCH ×3 (08:28→21:44)
[2019-11-01] MEDS: LACTOBACILLUS RHAMNOSUS GG 1 CAPSULE. PO SCH (08:28)
[2019-11-01] MEDS: VANCOMYCIN 125 MG/2.5 ML ORAL SOLUTION. PO SCH ×4 (08:28→21:44)
[2019-11-01] MEDS: CHOLESTYRAMINE/ASPARTAME 4 GM PACKET PO SCH ×2 (08:29→21:44)
[2019-11-01] MEDS: ESTROGENS CONJUGATED PO SCH (09:00)
[2019-11-01 11:02] VITALS: BP 113/70
[2019-11-01 13:26] LABS: HEMATOCRIT 27.8 % (36.0-47.0); RED BLOOD COUNT 2.91 x10^6/uL (3.50-5.40); RED CELL DISTRIBUTION WIDTH 17.2 % (11.5-14.5); WHITE BLOOD COUNT 15.2 x10^3/uL (4.0-11.0)
[2019-11-01 13:33] LABS: CALCIUM 8.5 mg/dL (8.5-10.1); CREATININE 2.8 mg/dL (0.6-1.0); GFR 16.6; POTASSIUM 4.4 mmol/L (3.5-5.1)
[2019-11-01 15:37] VITALS: BP 121/64
--- NOTE | 2019-11-01 15:50 | RAD ---
Exam: CT of abdomen and pelvis without contrast INDICATION: Worsening symptoms, diarrhea TECHNIQUE: Sequential axial images through the abdomen and pelvis obtained without IV contrast. Sagittal and coronal reformatted images were reconstructed from the axial data and reviewed. Comparisons: None FINDINGS: Heart size is normal. Pericardial effusion. There is trace left pleural effusion. Otherwise, visualized lung bases are clear. Evaluation of the solid organs is limited secondary to noncontrast technique. Liver, spleen, pancreas, and adrenals are unremarkable. Gallbladder surgically absent. No perinephric inflammation or hydronephrosis. There is a hyperdense lesion at the lower pole of the right kidney, likely representing hemorrhagic cyst measuring approximately 1 cm. Bladder is decompressed not well evaluated. Masterson balloon is noted within the bladder. Uterus is nonenlarged. No abnormal adnexal mass. There is diffuse wall thickening involving the colon. Small bowel is unremarkable. No free intra-abdominal air. There is moderate amount of intra-abdominal ascites. No free intra-abdominal air. Abdominal aorta has a normal course and caliber. No enlarged abdominal lymph nodes are identified. No suspicious osseous lesions or acute fractures. IMPRESSION: 1. Diffuse wall thickening throughout the colon favored represent diffuse colitis. This may infectious or inflammatory in etiology. 2. Moderate amount of intra-abdominal ascites. Exposure: One or more of the following in the visualized dose reduction techniques were utilized for this examination: 1. Automated exposure control 2. Adjustment of the MA and/or KV according to patient size 3. Use of iterative of reconstructive technique Electronically signed by: Ramya Mazariegos MD (11/01/2019 3:48 PM) [id number]
[2019-11-01 20:39] VITALS: BP 121/63
[2019-11-01] MEDS: GABAPENTIN 100 MG CAPSULE. PO SCH (21:44)
[2019-11-01 23:28] VITALS: BP 110/51
[2019-11-02] MEDS: IV NORMAL SALINE 1,000ML 1,000 ML IV SCH ×4 (01:45→20:19)
[2019-11-02 05:53] VITALS: BP 103/53
[2019-11-02] MEDS: VANCOMYCIN 125 MG/2.5 ML ORAL SOLUTION. PO SCH ×4 (07:56→20:19)
[2019-11-02] MEDS: PANTOPRAZOLE 40 MG TABLET. PO SCH (07:56)
[2019-11-02] MEDS: LACTOBACILLUS RHAMNOSUS GG 1 CAPSULE. PO SCH (07:57)
[2019-11-02] MEDS: ALLOPURINOL 100 MG TABLET. PO SCH (07:57)
[2019-11-02] MEDS: GLIMEPIRIDE 2 MG TABLET PO SCH (07:57)
[2019-11-02] MEDS: SODIUM BICARBONATE 650 MG TABLET PO SCH ×3 (07:57→20:19)
[2019-11-02] MEDS: ASPIRIN CHEWABLE 81 MG TABLET. PO SCH (07:57)
[2019-11-02] MEDS: CHOLESTYRAMINE/ASPARTAME 4 GM PACKET PO SCH ×2 (07:58→20:19)
[2019-11-02] MEDS: ESTROGENS CONJUGATED PO SCH (07:58)
[2019-11-02] MEDS: CYANOCOBALAMIN (VITAMIN B-12) 1,000 MCG TABLET. PO SCH (07:58)
[2019-11-02] MEDS: INSULIN LISPRO 300 UNITS/3 ML VIAL. SQ SCH ×3 (08:00→17:00)
--- NOTE | 2019-11-02 08:18 | PN ---
DATE: 11/02/2019 ATTENDING PHYSICIAN: Dr. Cohen. SUBJECTIVE: Still weak, 3-4 loose stools, not completely resolved. OBJECTIVE FINDINGS: VITAL SIGNS: Her temperature is 98.3 degrees Fahrenheit, blood pressure 103/53, pulse 94 and regular, oxygen saturation 97% on room air. HEENT: Head is without trauma. Pupils are reactive. Oropharynx is clear. Mucous membranes moist. NECK: Supple, no bruits. LUNGS: Clear. CARDIOVASCULAR: Showed regular heart tones. ABDOMEN: Obese, protuberant. No organomegaly. Bowel sounds are hypoactive. EXTREMITIES: Show no cyanosis. NEUROLOGIC: Focally intact. Speech is fluent. PERTINENT LABORATORY STUDIES: Her hemoglobin yesterday was 9.0 g, white count 15,200. Chemistry panel showed a creatinine still elevated at 2.8 mg/dL, BUN 48. ASSESSMENT: 1. Clostridium difficile pseudomembranous enterocolitis. 2. Dehydration, rehydrated. 3. Acute on chronic renal failure. 4. Metabolic acidosis. 5. Hyponatremia, improving. 6. Type 2 diabetes. 7. Hyperlipidemia. 8. Normochromic normocytic anemia. PLAN: 1. Continue vancomycin as ordered. 2. I have added Xifaxan 550 p.o. b.i.d. 3. Lomotil helps to decreased frequency of stools. 4. Continue hydration. 5. Follow up chemistries. 6. Tentative discharge pending her coverage for these medications as an outpatient. DEYVI HINES MD DR: JACK/nikolas JOB#: [id number] / [id number] KAPIL Field MD
--- NOTE | 2019-11-02 09:05 | NUR ---
IP: patient tested + c diff at PCP, requires contact + precautions.
[2019-11-02] MEDS: DIPHENOXYLATE/ATROPINE TABLET. PO PRN ×2 (09:13→16:53)
[2019-11-02] MEDS: rifAXIMin 550 MG TABLET PO SCH ×2 (09:13→20:19)
[2019-11-02 10:41] VITALS: BP 113/63
[2019-11-02 15:15] VITALS: BP 120/72
[2019-11-02 19:26] VITALS: BP 135/69
[2019-11-02] MEDS: GABAPENTIN 100 MG CAPSULE. PO SCH (20:19)
[2019-11-02 22:12] VITALS: BP 141/77
--- NOTE | 2019-11-03 03:40 | NUR ---
Pt had a good night, stated that she "slept pretty good for being in the hospital." Pt up with walker to void 4 times during night, stated that she "feels better on my feet then yesterday." Pt only had 1 stool this shift. SCDs on during night.
[2019-11-03] MEDS: IV NORMAL SALINE 1,000ML 1,000 ML IV SCH (05:28)
[2019-11-03 05:36] VITALS: BP 129/66
[2019-11-03 05:57] LABS: BASO % 0 % (0-3); EOS # 0.3 x10^3/uL (0.0-0.7); EOS % 2 % (0-3); HEMATOCRIT 28.6 % (36.0-47.0); HEMOGLOBIN 9.2 g/dL (12.0-15.5); LYMPH # 1.6 x10^3/uL (1.0-4.8); LYMPH % 12 % (24-48); MEAN CORPUSCULAR HEMOGLOBIN 31 pg (25-35); MEAN CORPUSCULAR HGB CONC 32 g/dL (31-37); MEAN CORPUSCULAR VOLUME 97 fL (79-100); MONO # 0.6 x10^3/uL (0.0-1.1); MONO % 5 % (0-9); NEUT # 10.5 x10^3uL (1.8-7.7); NEUT % 80 % (31-73); PLATELET COUNT 223 x10^3/uL (140-400); RED BLOOD COUNT 2.95 x10^6/uL (3.50-5.40); RED CELL DISTRIBUTION WIDTH 17.3 % (11.5-14.5)
[2019-11-03 06:14] LABS: ALBUMIN 1.8 g/dL (3.4-5.0); ALBUMIN/GLOBULIN RATIO 0.5 (1.0-1.7); CALCIUM 8.5 mg/dL (8.5-10.1); CREATININE 2.3 mg/dL (0.6-1.0); GFR 20.8; MAGNESIUM 1.8 mg/dL (1.8-2.4); POTASSIUM 4.4 mmol/L (3.5-5.1); TOTAL BILIRUBIN 0.4 mg/dL (0.2-1.0); TOTAL PROTEIN 5.4 g/dL (6.4-8.2)
[2019-11-03] MEDS: ESTROGENS CONJUGATED PO SCH (07:27)
[2019-11-03] MEDS: CYANOCOBALAMIN (VITAMIN B-12) 1,000 MCG TABLET. PO SCH (08:08)
[2019-11-03] MEDS: SODIUM BICARBONATE 650 MG TABLET PO SCH ×3 (08:08→20:04)
[2019-11-03] MEDS: PANTOPRAZOLE 40 MG TABLET. PO SCH (08:08)
[2019-11-03] MEDS: ASPIRIN CHEWABLE 81 MG TABLET. PO SCH (08:08)
[2019-11-03] MEDS: LACTOBACILLUS RHAMNOSUS GG 1 CAPSULE. PO SCH (08:08)
[2019-11-03] MEDS: CHOLESTYRAMINE/ASPARTAME 4 GM PACKET PO SCH ×2 (08:08→20:04)
[2019-11-03] MEDS: GLIMEPIRIDE 2 MG TABLET PO SCH (08:08)
[2019-11-03] MEDS: ALLOPURINOL 100 MG TABLET. PO SCH (08:09)
[2019-11-03] MEDS: VANCOMYCIN 125 MG/2.5 ML ORAL SOLUTION. PO SCH ×4 (08:09→20:04)
[2019-11-03] MEDS: rifAXIMin 550 MG TABLET PO SCH ×2 (08:09→20:04)
[2019-11-03] MEDS: INSULIN LISPRO 300 UNITS/3 ML VIAL. SQ SCH ×3 (08:14→16:40)
--- NOTE | 2019-11-03 08:53 | PN ---
DATE: 11/03/2019 ATTENDING PHYSICIAN: Dr. Cohen. SUBJECTIVE: She is short of breath and dyspneic with minimal exertion. Her weight is up. Ankles are swollen. Her bowels have improved. She has only had 1 bowel movement in the last 24 hours. OBJECTIVE FINDINGS: VITAL SIGNS: Her blood pressure today is 129/66, pulse is 102 and regular. She was afebrile, oxygen saturation 96% on room air. HEENT: Head is without trauma. Pupils are reactive. Sclerae nonicteric. NECK: Supple. Venous pressure is distended at 45 degrees. LUNGS: Bibasilar crackles. CARDIOVASCULAR: Showed distant heart tones. No gallops. ABDOMEN: Soft. EXTREMITIES: Showed 3+ pitting edema extending up to her knees. ASSESSMENT: 1. Clostridium difficile pseudomembranous enterocolitis, improving with decreased bowel movements. 2. Dehydration, rehydrated. 3. Acute on chronic renal failure. Creatinine is down to 2.3 mg percent. 4. Metabolic acidosis. 5. Hyponatremia, improving. 6. Type 2 diabetes. 7. Component of volume overload. PLAN: 1. Continue Xifaxan and vancomycin as ordered. 2. Followup chest x-ray. 3. Lasix 100 mg IV now for diuresis. 4. Serial chemistries. 5. Lomotil p.r.n. diarrhea. DEYVI HINES MD DR: JACK/nikolas JOB#: [id number] / [id number] roro Cohen Dr.
[2019-11-03] MEDS ORDERED: FUROSEMIDE 100 MG/10 ML VIAL IVP ONE (09:45)
[2019-11-03 10:03] VITALS: BP 119/68
--- NOTE | 2019-11-03 11:00 | RAD ---
Examination: PORTABLE CHEST 1V History: Cough, shortness of breath Comparison/Correlation: 10/26/2019 CT chest abdomen and pelvis without contrast Findings: Portable frontal view of the chest was obtained. Heart size and pulmonary vessels are normal. No infiltrate or pleural effusion. Limited pulmonary inflation. No pneumothorax. Bony structures are unremarkable. Impression: No active disease. Electronically signed by: Chicho Anaya MD (11/03/2019 10:57 AM) [id number]
[2019-11-03 15:26] VITALS: BP 129/69
--- NOTE | 2019-11-03 17:30 | NUR ---
Pt rested comfortably in room throughout shift. Pt given IV lasix for excess fluid volume--cough and edema are improved. IVF discontinued. Pt up to bedside commode with stand-by assistance. Pt had soft bowel movements x3 this shift.
[2019-11-03 19:23] VITALS: BP 121/68
[2019-11-03] MEDS: GABAPENTIN 100 MG CAPSULE. PO SCH (20:04)
--- NOTE | 2019-11-03 21:23 | NUR ---
Nursing Note Pt in room in bed at shift change, has 2+ pitting edema to bilat legs, is SOA with movement and is worn out from getting up to void. States its been a rough winter for her and her , that she had gotten CDIFF from 17 days of antibiotics for her sinus infection. States Bill her was in [place] for 30 days after a long hospitalization also. She is concerned about her , he had fallen last night, and her daughter Taisha found him on the floor. States she never thought she would end up like this meaning unable to get up and around states shes weak from all of this. In room resting for now.
[2019-11-03 22:42] VITALS: BP 111/67
[2019-11-04 05:06] VITALS: BP 135/75
[2019-11-04 05:57] LABS: BASO % 0 % (0-3); EOS # 0.2 x10^3/uL (0.0-0.7); EOS % 3 % (0-3); HEMATOCRIT 25.8 % (36.0-47.0); HEMOGLOBIN 8.3 g/dL (12.0-15.5); LYMPH # 1.3 x10^3/uL (1.0-4.8); LYMPH % 17 % (24-48); MEAN CORPUSCULAR HEMOGLOBIN 31 pg (25-35); MEAN CORPUSCULAR HGB CONC 32 g/dL (31-37); MEAN CORPUSCULAR VOLUME 96 fL (79-100); MONO # 0.5 x10^3/uL (0.0-1.1); MONO % 7 % (0-9); NEUT # 5.5 x10^3uL (1.8-7.7); NEUT % 73 % (31-73); PLATELET COUNT 192 x10^3/uL (140-400); RED BLOOD COUNT 2.68 x10^6/uL (3.50-5.40); RED CELL DISTRIBUTION WIDTH 17.6 % (11.5-14.5); WHITE BLOOD COUNT 7.5 x10^3/uL (4.0-11.0)
[2019-11-04 06:04] LABS: ALBUMIN 1.7 g/dL (3.4-5.0); ALBUMIN/GLOBULIN RATIO 0.5 (1.0-1.7); CALCIUM 8.7 mg/dL (8.5-10.1); CREATININE 2.3 mg/dL (0.6-1.0); GFR 20.8; TOTAL BILIRUBIN 0.5 mg/dL (0.2-1.0); TOTAL PROTEIN 5.1 g/dL (6.4-8.2)
[2019-11-04] MEDS: INSULIN LISPRO 300 UNITS/3 ML VIAL. SQ SCH ×3 (08:00→16:53)
[2019-11-04] MEDS: VANCOMYCIN 125 MG/2.5 ML ORAL SOLUTION. PO SCH ×4 (09:00→21:00)
[2019-11-04] MEDS: ESTROGENS CONJUGATED PO SCH (09:00)
--- NOTE | 2019-11-04 09:08 | PN ---
DATE: 11/04/2019 ATTENDING PHYSICIAN: Dr. Hines CHIEF COMPLAINT: Diarrhea. SUBJECTIVE: The patient is less dyspneic. She still has significant pedal edema. She had a good diuresis. OBJECTIVE FINDINGS: VITAL SIGNS: Heart rate at rest is 110, sinus, appears to be a sinus tachycardia. Her blood pressure is 135/75, temperature 98.0, oxygen saturation 98% on room air. HEENT: Head is without trauma. Pupils are reactive. Sclerae nonicteric. NECK: Veins were not distended today. LUNGS: Minimal crackles at bases. CARDIOVASCULAR: Showed a tachycardic rhythm. Distant heart tones. No gallops. Peripheral pulses are palpable and full. ABDOMEN: Soft, scaphoid, nontender, no organomegaly. Bowel sounds are normoactive. EXTREMITIES: Show 2+ pitting edema, improved since yesterday. NEUROLOGIC: Focally intact. Her frequency of bowel movements has decreased and is starting to firm up. ASSESSMENT: 1. Persistent diarrhea, improved, due to Clostridium difficile pseudomembranous enterocolitis. 2. Asymptomatic tachycardia. 3. Vascular congestion due to volume overload. 4. Acute on chronic renal failure, stabilized. 5. Essential hypertension. 6. Type 2 diabetes. 7. Hyponatremia, resolved. PLAN: 1. Lasix 100 mg IV in the morning only. She had a good response yesterday. 2. Add atenolol to control heart rate. 3. Increase diet as tolerated. 4. Continue vancomycin and Xifaxan. 5. P.r.n. Lomotil. DEYVI HINES MD DR: JACK/nikolas JOB#: [id number] / [id number]
[2019-11-04 09:39] VITALS: BP 124/75
[2019-11-04] MEDS ORDERED: FUROSEMIDE 100 MG/10 ML VIAL IVP ONE (09:45)
[2019-11-04] MEDS: GLIMEPIRIDE 2 MG TABLET PO SCH (10:01)
[2019-11-04] MEDS: ASPIRIN CHEWABLE 81 MG TABLET. PO SCH (10:01)
[2019-11-04] MEDS: CYANOCOBALAMIN (VITAMIN B-12) 1,000 MCG TABLET. PO SCH (10:01)
[2019-11-04] MEDS: SODIUM BICARBONATE 650 MG TABLET PO SCH ×3 (10:01→21:00)
[2019-11-04] MEDS: ALLOPURINOL 100 MG TABLET. PO SCH (10:02)
[2019-11-04] MEDS: LACTOBACILLUS RHAMNOSUS GG 1 CAPSULE. PO SCH (10:02)
[2019-11-04] MEDS: PANTOPRAZOLE 40 MG TABLET. PO SCH (10:02)
[2019-11-04] MEDS: rifAXIMin 550 MG TABLET PO SCH ×2 (10:02→21:00)
[2019-11-04] MEDS: CHOLESTYRAMINE/ASPARTAME 4 GM PACKET PO SCH ×2 (10:03→21:00)
[2019-11-04] MEDS: ATENOLOL 50 MG TABLET PO SCH (10:06)
[2019-11-04 16:51] VITALS: BP 108/68
[2019-11-04 20:39] VITALS: BP 91/54
[2019-11-04] MEDS: GABAPENTIN 100 MG CAPSULE. PO SCH (21:00)
[2019-11-04 22:52] VITALS: BP 102/63
[2019-11-05 05:27] VITALS: BP 98/59
[2019-11-05] MEDS: INSULIN LISPRO 300 UNITS/3 ML VIAL. SQ SCH ×2 (08:00→12:15)
[2019-11-05] MEDS: LACTOBACILLUS RHAMNOSUS GG 1 CAPSULE. PO SCH (08:44)
[2019-11-05] MEDS: CYANOCOBALAMIN (VITAMIN B-12) 1,000 MCG TABLET. PO SCH (08:44)
[2019-11-05] MEDS: ASPIRIN CHEWABLE 81 MG TABLET. PO SCH (08:44)
[2019-11-05] MEDS: SODIUM BICARBONATE 650 MG TABLET PO SCH ×2 (08:45→13:36)
[2019-11-05] MEDS: GLIMEPIRIDE 2 MG TABLET PO SCH (08:45)
[2019-11-05] MEDS: ALLOPURINOL 100 MG TABLET. PO SCH (08:45)
[2019-11-05] MEDS: rifAXIMin 550 MG TABLET PO SCH (08:46)
[2019-11-05] MEDS: PANTOPRAZOLE 40 MG TABLET. PO SCH (08:46)
[2019-11-05] MEDS: CHOLESTYRAMINE/ASPARTAME 4 GM PACKET PO SCH (08:46)
[2019-11-05] MEDS: VANCOMYCIN 125 MG/2.5 ML ORAL SOLUTION. PO SCH ×2 (08:50→13:36)
[2019-11-05 08:58] VITALS: BP 98/59
[2019-11-05] MEDS: ESTROGENS CONJUGATED PO SCH (08:58)
[2019-11-05] MEDS: ATENOLOL 50 MG TABLET PO SCH (08:58)
[2019-11-05] MEDS ORDERED: FUROSEMIDE 100 MG/10 ML VIAL IVP ONE (09:45)
--- NOTE | 2019-11-05 10:01 | DS ---
DATE OF DISCHARGE: 11/05/2019 ATTENDING PHYSICIANS: Dr. Cohen and Dr. Hines. FINAL DISCHARGE DIAGNOSES: 1. Clostridium difficile pseudomembranous enterocolitis. 2. Asymptomatic tachycardia, resolved. 3. Vascular congestion secondary to volume overload. 4. Jvyua-vn-hzvpjnm renal failure, stabilized. 5. Essential hypertension. 6. Type 2 diabetes. 7. Hyponatremia, resolved. HISTORY OF PRESENT ILLNESS: The patient is a 74-year-old female, fairly active. She has had several rounds of antibiotics for sinusitis by her primary care physician. She has had 2-week history of loose stools. She had a stool specimen, which came back positive for the Clostridium difficile toxin. She was admitted for further treatment and evaluation. PHYSICAL EXAMINATION: Please see the dictated note. PERTINENT LABORATORY AND X-RAY STUDIES: Creatinine peaked at a level of 3.7 mg/dL; prior to discharge, it was down to 2.3 mg/dL. This is about her baseline. Sodium was 137 mEq, potassium 4.0 mEq per liter. Hemoglobin maintained at 9.2 g/dL with a white count down to 7500. Urinalysis is unremarkable. Followup chest x-ray on the seventh hospital day showed heart size upper limits, vascular congestion, no acute infiltrates identified. COURSE IN THE HOSPITAL: The patient was admitted. She was given IV hydration. She did fairly well. After about 7 days, when I saw her, she had a little shortness of breath. Her swelling of the ankles was noted. She had congestion on the x-ray. IVs were discontinued and she responded well to Lasix. She received a total of 10 full days of the oral vancomycin 4 times a day, persistent diarrhea, was also helped with the addition of Xifaxan 550 b.i.d. and Lomotil p.r.n. She was doing better and breathing well, still remained quite weak. She is agreeable to go to the rehab unit; therefore on the 10th hospital day, arrangements were made for the patient to be discharged and be readmitted on the rehab unit. DISCHARGE MEDICATIONS: Will include continuation of her vancomycin 125 p.o. q.i.d., Tylenol, allopurinol, aspirin, colchicine, estrogens, Nexium, Neurontin, glyburide, iron, losartan and atenolol 50 mg p.o. daily. She will follow a diabetic diet. Her prognosis is fair. She was discharged then from our hospital in stable condition to be continued care on the rehab unit. Total discharge time is 39 minutes. DEYVI HINES MD DR: JACK/nikolas JOB#: [id number] / [id number] KAPIL Field MD
[2019-11-05] MEDS ORDERED: HYDROcodone/CHLORPHEN POLIS 5 ML SUS.ER.12H PO PRN (11:30)
--- NOTE | 2019-11-05 12:48 | NUR ---
Patient sitting in chair. Patient Masterson removed. patient has no further needs at this time. Patient had 4 loose stools today.
--- NOTE | 2019-11-05 15:01 | NUR ---
NSG NOTE; DISCHARGE TO [facility] UNIT PER DR HINES'S ORDERS AND PT'S CONSENT, PT IS BEING DISCHARGED FROM IN PATIENT ACUTE STATUS TO BEGIN A STAY IN THE [facility] UN[facility].
== END 2019-11-05 15:00 | DRG 371 ==
LOC: 1 SOUTH 13:42 → UNDODISIN 11-05 15:03
PROVIDERS: ADMIT Internal Medicine; ATTEND Internal Medicine
DX: A04.72 Enterocolitis due to Clostridium difficile, not specified as recurrent (principal); E43 Unspecified severe protein-calorie malnutrition; N17.9 Acute kidney failure, unspecified; E87.1 Hypo-osmolality and hyponatremia; E87.2 Acidosis; D64.9 Anemia, unspecified; E11.22 Type 2 diabetes mellitus with diabetic chronic kidney disease; E11.43 Type 2 diabetes mellitus with diabetic autonomic (poly)neuropathy; E78.5 Hyperlipidemia, unspecified; E86.0 Dehydration; E87.70 Fluid overload, unspecified; I12.9 Hypertensive chronic kidney disease with stage 1 through stage 4 chronic kidney disease, or unspecified chronic kidney disease; N18.9 Chronic kidney disease, unspecified; Z79.4 Long term (current) use of insulin; Z80.1 Family history of malignant neoplasm of trachea, bronchus and lung; Z80.3 Family history of malignant neoplasm of breast; Z82.49 Family history of ischemic heart disease and other diseases of the circulatory system; Z87.891 Personal history of nicotine dependence; Z90.710 Acquired absence of both cervix and uterus; Z98.41 Cataract extraction status, right eye; Z98.42 Cataract extraction status, left eye; D50.0 Iron deficiency anemia secondary to blood loss (chronic); E66.9 Obesity, unspecified; Z68.33 Body mass index [BMI] 33.0-33.9, adult; Z20.828 Contact with and (suspected) exposure to other viral communicable diseases
CPT/HCPCS: 36415; 71045; 71250; 74176; 80048; 80053; 81001; 82947; 83605; 83735; 85007; 85025; 85027; 87040; J1815; 97110; 97116; 97530; 97535; J7030

== ENCOUNTER 2019-11-05 15:00 | Inpatient (IN) | payer MEDICARE, OTHER ==
[~2019-11-05] VITALS: Ht 165.1 cm; Wt 86.3 kg
[~2019-11-05 15:00] MED LIST: ACET325T21 PO; ALLO300T PO; ASPI-630 PO; COLC0.6T42 PO; CYAN25003 SL; ESOM40CA PO; ESTR0.45 PO; GABA100C6 PO; GLIM4TAB8 PO; IRON1CAP14 PO; LOSA25TA11 PO; ONDA8TAB17 PO
[2019-11-05] MEDS ORDERED: SALIVA STIMULANT AGENT 44ML SPRAY BOTTLE. PO PRN (16:45)
[2019-11-05] MEDS ORDERED: ACETAMINOPHEN 325 MG TABLET PO PRN (16:45)
[2019-11-05] MEDS: INSULIN LISPRO 300 UNITS/3 ML VIAL. SQ SCH (16:57)
[2019-11-05] MEDS: VANCOMYCIN 125 MG/2.5 ML ORAL SOLUTION. PO SCH ×2 (17:00→21:00)
[2019-11-05 19:29] VITALS: BP 103/61
[2019-11-05] MEDS: rifAXIMin 550 MG TABLET PO SCH (21:00)
[2019-11-05] MEDS: GABAPENTIN 100 MG CAPSULE. PO SCH (21:00)
[2019-11-05] MEDS: CHOLESTYRAMINE/ASPARTAME 4 GM PACKET PO SCH (21:00)
[2019-11-05] MEDS: ONDANSETRON ODT 4 MG TAB.RAPDIS PO SCH (22:00)
[2019-11-06 05:35] VITALS: BP 104/63
[2019-11-06] MEDS: ONDANSETRON ODT 4 MG TAB.RAPDIS PO SCH ×3 (06:00→22:00)
[2019-11-06] MEDS: INSULIN LISPRO 300 UNITS/3 ML VIAL. SQ SCH ×3 (08:00→16:46)
[2019-11-06] MEDS: CYANOCOBALAMIN (VITAMIN B-12) 1,000 MCG TABLET. PO SCH (08:08)
[2019-11-06] MEDS: GLIMEPIRIDE 2 MG TABLET PO SCH (08:09)
[2019-11-06] MEDS: ALLOPURINOL 300 MG TABLET. PO SCH (08:09)
[2019-11-06] MEDS: LOSARTAN 25 MG TABLET. PO SCH (08:09)
[2019-11-06] MEDS: ATENOLOL 50 MG TABLET PO SCH (08:09)
[2019-11-06] MEDS: ASPIRIN CHEWABLE 81 MG TABLET. PO SCH (08:09)
[2019-11-06] MEDS: LACTOBACILLUS RHAMNOSUS GG 1 CAPSULE. PO SCH (08:09)
[2019-11-06] MEDS: CHOLESTYRAMINE/ASPARTAME 4 GM PACKET PO SCH ×2 (08:10→20:12)
[2019-11-06] MEDS: COLCHICINE 0.6 MG TABLET PO SCH (08:10)
[2019-11-06] MEDS: rifAXIMin 550 MG TABLET PO SCH ×2 (08:10→20:12)
[2019-11-06] MEDS: PANTOPRAZOLE 40 MG TABLET. PO SCH (08:11)
[2019-11-06] MEDS: VANCOMYCIN 125 MG/2.5 ML ORAL SOLUTION. PO SCH ×4 (08:11→20:12)
[2019-11-06] MEDS: ESTROGENS CONJUGATED PO SCH (08:11)
[2019-11-06 08:19] VITALS: BP 121/69
[2019-11-06] MEDS ORDERED: [UNRECOGNIZED DRUG - OTHER] PO SCH (09:00)
--- NOTE | 2019-11-06 12:49 | PN ---
DATE: 11/06/2019 The patient was discharged yesterday and now on rehab status. SUBJECTIVE: Doing well. She came up and ambulating. Stools are becoming formed. There is no further diarrhea. Her appetite still is not 100%. OBJECTIVE FINDINGS: VITAL SIGNS: Her blood pressure today is 121/69, her pulse is 77 and regular, oxygen saturation 100% on room air, temperature 98.0 degrees Fahrenheit. HEENT: Within normal limits. NECK: Supple. Oropharynx is clear. LUNGS: Clear. CARDIOVASCULAR: Showed regular heart tones. ABDOMEN: Soft, nontender, no organomegaly. Bowel sounds are hypoactive. EXTREMITIES: Showed trace edema. NEUROLOGIC: Focally intact. LABORATORY STUDIES: Creatinine was 2.3 mg ____ on Thursday. ASSESSMENT: 1. A 74-year-old female with Clostridium difficile colitis. 2. She had volume overload from IV hydration, now improved with 3 days of diuretics. 3. Essential hypertension. 4. Tachycardia, resolved. 5. Essential hypertension. 6. Nxnmu-xa-yqirrnc kidney injury. Baseline creatinine is probably somewhere around 2.0 mg/dL. PLAN: 1. Continue her oral vancomycin and Xifaxan. 2. Followup chemistry panel in the morning. 3. Continue home meds. 4. Glucose control. DEYVI HINES MD DR: JACK/nikolas JOB#: [id number] / [id number]
[2019-11-06 19:28] VITALS: BP 112/65
[2019-11-06] MEDS: GABAPENTIN 100 MG CAPSULE. PO SCH (20:11)
[2019-11-07 05:28] VITALS: BP 107/59
[2019-11-07] MEDS: ONDANSETRON ODT 4 MG TAB.RAPDIS PO SCH ×3 (06:00→21:25)
[2019-11-07 06:11] LABS: CALCIUM 8.5 mg/dL (8.5-10.1); CREATININE 2.4 mg/dL (0.6-1.0); GFR 19.8; POTASSIUM 3.8 mmol/L (3.5-5.1)
[2019-11-07] MEDS: ALLOPURINOL 300 MG TABLET. PO SCH (07:47)
[2019-11-07] MEDS: ATENOLOL 50 MG TABLET PO SCH (07:47)
[2019-11-07] MEDS: GLIMEPIRIDE 2 MG TABLET PO SCH (07:47)
[2019-11-07] MEDS: LACTOBACILLUS RHAMNOSUS GG 1 CAPSULE. PO SCH (07:47)
[2019-11-07] MEDS: ASPIRIN CHEWABLE 81 MG TABLET. PO SCH (07:47)
[2019-11-07] MEDS: LOSARTAN 25 MG TABLET. PO SCH (07:48)
[2019-11-07] MEDS: PANTOPRAZOLE 40 MG TABLET. PO SCH (07:48)
[2019-11-07] MEDS: CHOLESTYRAMINE/ASPARTAME 4 GM PACKET PO SCH ×2 (07:48→21:25)
[2019-11-07] MEDS: CYANOCOBALAMIN (VITAMIN B-12) 1,000 MCG TABLET. PO SCH (07:48)
[2019-11-07] MEDS: COLCHICINE 0.6 MG TABLET PO SCH (07:49)
[2019-11-07] MEDS: rifAXIMin 550 MG TABLET PO SCH (07:50)
[2019-11-07] MEDS: INSULIN LISPRO 300 UNITS/3 ML VIAL. SQ SCH ×3 (07:54→16:52)
[2019-11-07] MEDS: ESTROGENS CONJUGATED PO SCH (07:54)
[2019-11-07] MEDS: VANCOMYCIN 125 MG/2.5 ML ORAL SOLUTION. PO SCH ×4 (07:57→21:25)
--- NOTE | 2019-11-07 09:51 | PN ---
DATE: 11/07/2019 REHAB UNIT PROGRESS NOTE SUBJECTIVE: No new complaints. She is doing well. She is up and ambulating with some minimal assistance. She denied any further loose stools or diarrhea. Her appetite is improving and she is getting a bit stronger. OBJECTIVE FINDINGS: VITAL SIGNS: Today, her repeat electrolytes were within range. Her creatinine has settled down and has been unchanged at 2.4 mg/dL, which is close to baseline. Her blood pressure is 109/59. Her temperature is 97.8 degrees Fahrenheit and her oxygen saturation is 97% on room air, heart rate is 75 and regular. HEENT: Head is without trauma. Pupils are reactive. Sclerae nonicteric. Oropharynx clear. NECK: Supple, no bruits. LUNGS: Clear. CARDIOVASCULAR: Showed regular heart tones. ABDOMEN: Soft, nontender. EXTREMITIES: Show still trace edema. NEUROLOGIC: Focally intact. Gait was normal and speech was fluent. ASSESSMENT: 1. A 74-year-old female with Clostridium difficile enteral colitis, improved. 2. Volume overload from IV hydration, improved with 3 days of diuresis. 3. Essential hypertension. 4. Tachycardia, improved with beta blockade. 5. Acute on chronic kidney injury with baseline creatinine close to baseline for her. 6. Diabetes. PLAN: 1. We can stop the Xifaxan. 2. Continue vancomycin for few more days. 3. Follow up chemistry weekly. 4. Physical therapy to help. 5. Discharge planning to go home. DEYVI HINES MD DR: JACK/nikolas JOB#: [id number] / [id number]
[2019-11-07 18:15] VITALS: BP 99/73
[2019-11-07] MEDS: GABAPENTIN 100 MG CAPSULE. PO SCH (21:25)
[2019-11-08] MEDS: ONDANSETRON ODT 4 MG TAB.RAPDIS PO SCH (05:37)
[2019-11-08] MEDS ORDERED: ONDANSETRON ODT 4 MG TAB.RAPDIS PO PRN (05:45)
[2019-11-08 06:12] VITALS: BP 108/66
[2019-11-08] MEDS: LACTOBACILLUS RHAMNOSUS GG 1 CAPSULE. PO SCH (07:56)
[2019-11-08] MEDS: PANTOPRAZOLE 40 MG TABLET. PO SCH (07:56)
[2019-11-08] MEDS: ALLOPURINOL 300 MG TABLET. PO SCH (07:56)
[2019-11-08] MEDS: CYANOCOBALAMIN (VITAMIN B-12) 1,000 MCG TABLET. PO SCH (07:56)
[2019-11-08] MEDS: ASPIRIN CHEWABLE 81 MG TABLET. PO SCH (07:56)
[2019-11-08] MEDS: ESTROGENS CONJUGATED PO SCH (07:57)
[2019-11-08] MEDS: INSULIN LISPRO 300 UNITS/3 ML VIAL. SQ SCH ×3 (07:57→17:00)
[2019-11-08] MEDS: GLIMEPIRIDE 2 MG TABLET PO SCH (07:57)
[2019-11-08] MEDS: COLCHICINE 0.6 MG TABLET PO SCH (07:58)
[2019-11-08] MEDS: LOSARTAN 25 MG TABLET. PO SCH (07:58)
[2019-11-08] MEDS: ATENOLOL 50 MG TABLET PO SCH (07:59)
[2019-11-08] MEDS: CHOLESTYRAMINE/ASPARTAME 4 GM PACKET PO SCH ×2 (07:59→21:00)
[2019-11-08] MEDS: VANCOMYCIN 125 MG/2.5 ML ORAL SOLUTION. PO SCH ×4 (08:05→21:00)
--- NOTE | 2019-11-08 09:40 | PN ---
DATE: 11/08/2019 ATTENDING PHYSICIAN: Dr. Hines. SUBJECTIVE: Doing well, still weak on legs. She is ambulating. Bowels have formed. She wants us to stop the powder Questran, which I think is reasonable. OBJECTIVE FINDINGS: GENERAL: Her stools are formed now. VITAL SIGNS: Her blood pressure is 108/66, her pulse is 68 and regular, temperature 97.7 degrees Fahrenheit, oxygen saturation 100% on room air. HEENT: Head is without trauma. Pupils are reactive. Sclerae nonicteric. Oropharynx clear. NECK: Supple. LUNGS: Clear. CARDIOVASCULAR: Showed regular heart tones. No gallops. ABDOMEN: Soft. EXTREMITIES: Still showed 1-2+ edema of the ankles. ASSESSMENT: 1. A 74-year-old female with finishing her course of vancomycin for Clostridium difficile pseudomembranous colitis. 2. Sinus tachycardia, improved with beta-shabbir. 3. Essential hypertension. 4. Acute on chronic kidney failure. Creatinine has stabilized at 2.4 mg/dL, which is about her baseline. 5. Type 2 diabetes. PLAN: 1. We stopped the Xifaxan yesterday. 2. We will continue the vancomycin for a few more days. 3. We can stop the Questran. 4. Continue PT, OT. 5. Discharge planning for later this week. Dr. Cohen will be back tomorrow. DEYVI HINES MD DR: JACK/nikolas JOB#: [id number] / [id number]
[2019-11-08 19:30] VITALS: BP 95/51
[2019-11-08] MEDS: GABAPENTIN 100 MG CAPSULE. PO SCH (21:43)
[2019-11-09 04:58] VITALS: BP 100/61
[2019-11-09] MEDS: INSULIN LISPRO 300 UNITS/3 ML VIAL. SQ SCH ×3 (08:00→16:55)
[2019-11-09] MEDS: CYANOCOBALAMIN (VITAMIN B-12) 1,000 MCG TABLET. PO SCH (08:08)
[2019-11-09] MEDS: VANCOMYCIN 125 MG/2.5 ML ORAL SOLUTION. PO SCH ×4 (08:09→21:16)
[2019-11-09] MEDS: ALLOPURINOL 300 MG TABLET. PO SCH (08:09)
[2019-11-09] MEDS: ASPIRIN CHEWABLE 81 MG TABLET. PO SCH (08:09)
[2019-11-09] MEDS: LACTOBACILLUS RHAMNOSUS GG 1 CAPSULE. PO SCH (08:09)
[2019-11-09] MEDS: LOSARTAN 25 MG TABLET. PO SCH (08:09)
[2019-11-09] MEDS: PANTOPRAZOLE 40 MG TABLET. PO SCH (08:09)
[2019-11-09] MEDS: GLIMEPIRIDE 2 MG TABLET PO SCH (08:09)
[2019-11-09] MEDS: ATENOLOL 50 MG TABLET PO SCH (08:10)
[2019-11-09] MEDS: COLCHICINE 0.6 MG TABLET PO SCH (08:12)
[2019-11-09] MEDS: ESTROGENS CONJUGATED PO SCH (08:13)
[2019-11-09] MEDS: CHOLESTYRAMINE/ASPARTAME 4 GM PACKET PO SCH ×2 (08:13→21:00)
[2019-11-09 18:15] VITALS: BP 104/65
[2019-11-09] MEDS: GABAPENTIN 100 MG CAPSULE. PO SCH (21:16)
[2019-11-10 05:53] VITALS: BP 98/66
[2019-11-10] MEDS: INSULIN LISPRO 300 UNITS/3 ML VIAL. SQ SCH ×3 (08:00→16:55)
[2019-11-10] MEDS: PANTOPRAZOLE 40 MG TABLET. PO SCH (08:35)
[2019-11-10] MEDS: GLIMEPIRIDE 2 MG TABLET PO SCH (08:35)
[2019-11-10] MEDS: LACTOBACILLUS RHAMNOSUS GG 1 CAPSULE. PO SCH (08:35)
[2019-11-10] MEDS: ALLOPURINOL 300 MG TABLET. PO SCH (08:35)
[2019-11-10] MEDS: ASPIRIN CHEWABLE 81 MG TABLET. PO SCH (08:35)
[2019-11-10] MEDS: CYANOCOBALAMIN (VITAMIN B-12) 1,000 MCG TABLET. PO SCH (08:36)
[2019-11-10] MEDS: VANCOMYCIN 125 MG/2.5 ML ORAL SOLUTION. PO SCH ×3 (08:36→21:29)
[2019-11-10] MEDS: COLCHICINE 0.6 MG TABLET PO SCH (08:36)
[2019-11-10] MEDS: ESTROGENS CONJUGATED PO SCH (09:00)
[2019-11-10] MEDS: CHOLESTYRAMINE/ASPARTAME 4 GM PACKET PO SCH ×2 (09:00→21:29)
[2019-11-10] MEDS: LOSARTAN 25 MG TABLET. PO SCH (09:00)
[2019-11-10] MEDS: ATENOLOL 50 MG TABLET PO SCH (09:00)
[2019-11-10 15:36] VITALS: BP 107/67
--- NOTE | 2019-11-10 16:22 | RAD ---
EXAM: Bilateral lower extremity venous Doppler sonogram. HISTORY: Pain and swelling. TECHNIQUE: Moses scale and color Doppler sonographic evaluation of the bilateral lower extremity veins with spectral waveform analysis was performed. FINDINGS: There is normal color flow, normal compressibility and there are normal spectral waveforms in the lower extremity veins. The calf veins are not well seen due to soft tissue edema. IMPRESSION: No Doppler evidence of lower extremity deep venous thrombosis, with limited evaluation of the calf veins due to soft tissue edema. Electronically signed by: Victoria Ballard MD (11/10/2019 4:19 PM) [id number]
--- NOTE | 2019-11-10 18:56 | PN ---
DATE: 11/10/2019 SUBJECTIVE: The patient is sitting comfortably in her chair, in no apparent distress. She apparently has had 2 semisolid bowel movement this morning and then another one that was watery similar to her when she presented initially. She denied any abdominal pain. Denied any nausea or vomiting. Denied any chills, rigors or fever. She has been generally doing very well; however, she has been refusing to take her cholestyramine powder. She also continued to complain of marked swelling of both lower extremities, although she generally is feeling much stronger, has been up and about walking with a walker and participating with physical therapy. In fact, she is scheduled to be discharged home tomorrow. PHYSICAL EXAMINATION: GENERAL: When I saw her this afternoon, she looked well and was clearly in no apparent respiratory distress, pale, but no jaundice, cyanosis or thyromegaly. No jugular venous distention. No limb edema. VITAL SIGNS: Her heart rate was 70, blood pressure was 98/66, temperature was 97.7, respiratory rate 20, and oxygen saturation was 100% on room air. HEAD, EYES, EARS, NOSE AND THROAT: Showed normocephalic, atraumatic. NECK: Supple. HEART: Showed normal first and second heart sounds. No gallop or murmur. CHEST: Clear to auscultation. No crepitation or rhonchi. ABDOMEN: Distended, soft, nontender. NEUROLOGIC: She is awake, alert, responding appropriately. All cranial nerves intact. She moves extremities without difficulty. She ambulates with a walker. Her intake was 1120, no output was recorded. LABORATORY DATA: Her blood sugar seems to be well controlled. Her most recent lab work, however, showed a white cell count 7500, hemoglobin 8.3, hematocrit 25.8, MCV 96, and platelet count of 192,000. Her most recent chemistry showed a serum sodium 137, potassium 4, chloride 109, bicarbonate 17, anion gap of 11, BUN 36, creatinine 2.3, estimated GFR was 20 mL per minute. Her glucose was 147. Her calcium was 8.7. Total bilirubin, AST, ALT, alkaline phosphatase were normal. Total protein was 5.1, albumin was 1.7. ASSESSMENT: 1. Clostridium difficile colitis. 2. Acute on chronic kidney injury. Her creatinine came down from 3.8-2.3. 3. Hyponatremia, improved. 4. The patient has multiple other medical problems including: A. Insulin-requiring type 2 diabetes mellitus, seems to be well controlled. B. Hypertension, well controlled. C. Diabetic neuropathy with diabetic autonomic neuropathy. D. Hyperlipidemia. E. Normochromic normocytic anemia. F. Hyperchloremic acidosis for which I added sodium bicarbonate and has apparently improved. In fact, her acidosis has improved. PLAN: My plan is to restart her back on her Questran. I would repeat her lab work tomorrow. She has also severe hypoalbuminemia with the cause of her third spacing, although urinalysis showed no evidence of proteinuria. KAPIL OLEARY MD DR: JUANITO/nikolas JOB#: [id number] / [id number]
[2019-11-10 19:36] VITALS: BP 107/59
[2019-11-10] MEDS: GABAPENTIN 100 MG CAPSULE. PO SCH (21:29)
[2019-11-11 05:13] VITALS: BP 113/67
[2019-11-11 06:20] LABS: HEMATOCRIT 24.4 % (36.0-47.0); HEMOGLOBIN 7.9 g/dL (12.0-15.5); MEAN CORPUSCULAR HEMOGLOBIN 32 pg (25-35); MEAN CORPUSCULAR HGB CONC 33 g/dL (31-37); MEAN CORPUSCULAR VOLUME 98 fL (79-100); PLATELET COUNT 141 x10^3/uL (140-400); RED BLOOD COUNT 2.48 x10^6/uL (3.50-5.40); RED CELL DISTRIBUTION WIDTH 20.2 % (11.5-14.5); WHITE BLOOD COUNT 5.4 x10^3/uL (4.0-11.0)
[2019-11-11 06:44] LABS: ALBUMIN 1.8 g/dL (3.4-5.0); ALBUMIN/GLOBULIN RATIO 0.6 (1.0-1.7); CALCIUM 8.4 mg/dL (8.5-10.1); CREATININE 2.4 mg/dL (0.6-1.0); GFR 19.8; POTASSIUM 3.9 mmol/L (3.5-5.1); TOTAL BILIRUBIN 0.4 mg/dL (0.2-1.0); TOTAL PROTEIN 4.9 g/dL (6.4-8.2)
[2019-11-11 06:56] LABS: OVALOCYTES MANY; PLT ESTIMATE ADEQUATE (ADEQUATE)
[2019-11-11 06:57] LABS: ANISOCYTOSIS MOD; TEAR DROP CELLS MOD
[2019-11-11] MEDS: INSULIN LISPRO 300 UNITS/3 ML VIAL. SQ SCH ×2 (08:00→12:08)
[2019-11-11] MEDS: GLIMEPIRIDE 2 MG TABLET PO SCH (08:49)
[2019-11-11] MEDS: CHOLESTYRAMINE/ASPARTAME 4 GM PACKET PO SCH (08:49)
[2019-11-11] MEDS: ALLOPURINOL 300 MG TABLET. PO SCH (08:49)
[2019-11-11] MEDS: CYANOCOBALAMIN (VITAMIN B-12) 1,000 MCG TABLET. PO SCH (08:49)
[2019-11-11] MEDS: LACTOBACILLUS RHAMNOSUS GG 1 CAPSULE. PO SCH (08:49)
[2019-11-11] MEDS: COLCHICINE 0.6 MG TABLET PO SCH (08:50)
[2019-11-11] MEDS: ATENOLOL 50 MG TABLET PO SCH (08:50)
[2019-11-11] MEDS: VANCOMYCIN 125 MG/2.5 ML ORAL SOLUTION. PO SCH ×2 (08:50→14:00)
[2019-11-11] MEDS: ASPIRIN CHEWABLE 81 MG TABLET. PO SCH (08:50)
[2019-11-11] MEDS: PANTOPRAZOLE 40 MG TABLET. PO SCH (08:50)
[2019-11-11 09:00] VITALS: BP 113/67
[2019-11-11] MEDS: LOSARTAN 25 MG TABLET. PO SCH (09:00)
[2019-11-11] MEDS: ESTROGENS CONJUGATED PO SCH (09:00)
[2019-11-11] MEDS ORDERED: CHOL4POW11 PO (13:39)
--- NOTE | 2019-11-11 13:42 | DISCH ---
HOME HEALTH DISCHARGE/MEDS DISCHARGE INFORMATION: Discharge Date: November 11, 2019 Final Diagnosis: C Difficile colitis Acute on chronic kidney injury Condition on Discharge: Stable CODE STATUS: Code Status: Full HOME HEALTH: Face to Face: I certify this patient is under my care and that I, or a nurse practitioner or physician's entry level assistant manager working with me, had a face to face encounter that meets the physician face to face encounter requirements with this patient on 11/11/19 Medical Condition(s): Other [facility] For: Admin/Educate Injections Physical Therapy For: Evalulation/Treatment Occupational Therapy For: Evaluation/Treatment POST DISCHARGE ORDERS: Activity Instructions for Disc: Resume previous activity DIET AFTER DISCHARGE: ADA CERTIFICATION STATEMENT: Certification Statement: Based on the above finding, I certify that this patient is confined to the home and needs intermittent assisted care, physical therapy and/or speech therapy, or continues to need occupational therapy.~ This patient is under my care, and I have initiated the establishment of the plan of care.~ This patient will be followed by myself or a community physician who will periodically review the plan of care. DISCHARGE MEDICATIONS: Home Meds Reported Medications Esomeprazole Magnesium (NEXIUM CAPSULE) 40 Mg Capsule.dr, 1 CAP PO DAILY for HEARTBURN 10/26/19 Acetaminophen (ACETAMINOPHEN) 325 Mg Tablet, 2 TAB PO PRN DAILY PRN for PAIN OR FEVER 10/26/19 Aspirin (ASPIRIN) 81 Mg Tab.chew, 81 MG PO DAILY for HEART HEALTH 10/26/19 Cyanocobalamin (Vitamin B-12) (VITAMIN B-12) 2,500 Mcg Tab.subl, 1 TAB SL DAILY for SUPPLEMENT 10/26/19 Gabapentin (Gabapentin) 100 Mg Capsule, 1 CAP PO HS for NERVE PAIN 10/26/19 Estrogens, Conjugated (PREMARIN) 0.45 Mg Tablet, 0.5 TAB PO DAILY for HORMONE SUPPLEMENT 10/26/19 Glimepiride (GLIMEPIRIDE) 4 Mg Tablet, 1 TAB PO DAILY for DIABETES-HIGH BLOOD SUGAR 10/26/19 Losartan Potassium (LOSARTAN POTASSIUM ) 25 Mg Tablet, 1 TAB PO DAILY for HIGH BLOOD PRESSURE 10/26/19 Colchicine (Colchicine) 0.6 Mg Tablet, 1 TAB PO DAILY for GOUT 10/26/19 Allopurinol (ALLOPURINOL) 300 Mg Tablet, 1 TAB PO DAILY for GOUT 10/26/19 Iron,Fum&Ps/Fa/Vit B&C#18/L.ca (FUSION PLUS CAPSULE) 1 Each Capsule, 1 CAP PO DAILY for SUPPLEMENT 10/26/19 Ondansetron Hcl (ONDANSETRON HCL) 8 Mg Tablet, 1 TAB PO Q8HRS for NAUSEA 10/26/19 KAPIL OLEAYR MD November 11, 2019 13:42
[2019-11-11] MEDS ORDERED: ALLO100T PO (14:01)
[2019-11-11] MEDS ORDERED: VANC125C3 PO (14:08)
--- NOTE | 2019-11-11 14:22 | DS ---
DATE OF DISCHARGE: 11/11/2019 HOSPITAL COURSE: The patient is a 74-year-old female patient who was originally admitted directly from her primary care physician with recurrent bouts of diarrhea turned out to be positive for C. diff colitis. She also has acute on chronic kidney injury with creatinine originally was 3.8. She was treated with IV fluid and oral vancomycin and her kidney function has gradually improved and plateaued around 2.4 from 1.9 on July 2019. She has been up and about, able to ambulate with a walker. She continued to complain of generalized anasarca. Unfortunately, she has severe hypoalbuminemia with serum albumin is only 1.8. However, her strength has improved and she will be discharged home with home health. PHYSICAL EXAMINATION: GENERAL: When I saw her this afternoon, she was pale, but no jaundice, cyanosis or thyromegaly. No jugular venous distention. No limb edema. VITAL SIGNS: Her heart rate was 79, blood pressure was 113/67, temperature 97.7, respiratory rate was 20, and oxygen saturation was 100%. HEAD, EYES, EARS, NOSE AND THROAT: Showed normocephalic and atraumatic. NECK: Supple. HEART: Showed normal first and second heart sounds. No gallop, rub or murmur. CHEST: Clear to auscultation. No crepitation or rhonchi. ABDOMEN: Distended, soft, nontender. NEUROLOGIC: She was awake, alert, responding appropriately. All cranial nerves are intact. She moves extremities without difficulty. She ambulates with a walker. Her intake over the last 24 hours was 570, no output was recorded. LABORATORY DATA: This morning showed a serum sodium 142, potassium 3.9, chloride 112, bicarbonate 20, anion gap of 10, BUN 36, creatinine 2.4, estimated GFR was 19 mL per minute. Her glucose 108, calcium was 8.4. Total bilirubin, AST, ALT, alkaline phosphatase were normal. Her total protein was 5.9, albumin was 1.8. White cell count was 5400, hemoglobin 8, hematocrit 24, MCV 98 and platelet count of 141,000. DISCHARGE MEDICATIONS: She will be discharged home to continue on a tapering course of vancomycin. She should be on 125 mg capsule 3 times a day for 2 weeks and then 2 times a day for 2 weeks. She was also discharged on cholestyramine, Questran 1 packet twice a day for 2 weeks, Tylenol 650 mg every 6 hours, allopurinol 300 mg daily, aspirin 81 mg once a day, colchicine 0.6 mg once a day, cyanocobalamin 2500 mcg tablet once a day, Nexium 40 mg daily, estrogen conjugated 0.5 mg tablet daily for hormone replacement, gabapentin 100 mg at bedtime, glimepiride 4 mg daily, multivitamin with fusion plus capsule 1 capsule once a day, losartan potassium 25 mg once a day, and ondansetron 8 mg every 8 hours. FINAL DISCHARGE DIAGNOSES: 1. Clostridium difficile colitis, resolved. She will be discharged with a tapering course of vancomycin. 2. Rsnjr-kz-cifzsti kidney injury, resolved. Her creatinine has plateaued around 2.4. 3. Severe protein-calorie malnutrition. 4. Type 2 diabetes mellitus. 5. Gout. 6. Diabetic neuropathy, given her creatinine has risen to 2.4, I will cut down her allopurinol probably down to 100 mg once a day. KAPIL OLEARY MD DR: JUANITO/nikolas JOB#: [id number] / [id number]
== END 2019-11-11 14:30 | disposition home health service (06) | DRG 371 ==
LOC: 1 SOUTH 15:00
PROVIDERS: ADMIT Internal Medicine; ATTEND Internal Medicine
DX: A04.72 Enterocolitis due to Clostridium difficile, not specified as recurrent (principal); E43 Unspecified severe protein-calorie malnutrition; N17.9 Acute kidney failure, unspecified; E87.1 Hypo-osmolality and hyponatremia; E87.2 Acidosis; D64.9 Anemia, unspecified; E11.22 Type 2 diabetes mellitus with diabetic chronic kidney disease; E11.43 Type 2 diabetes mellitus with diabetic autonomic (poly)neuropathy; E78.5 Hyperlipidemia, unspecified; E87.70 Fluid overload, unspecified; I12.9 Hypertensive chronic kidney disease with stage 1 through stage 4 chronic kidney disease, or unspecified chronic kidney disease; M10.9 Gout, unspecified; N18.9 Chronic kidney disease, unspecified; Z79.4 Long term (current) use of insulin; Z68.37 Body mass index [BMI] 37.0-37.9, adult
CPT/HCPCS: 36415; 80048; 80053; 82947; 85027; 93970; J1815; Q0162; 97010; 97110; 97112; 97116; 97140; 97530; 97535

== ENCOUNTER → 2020-01-17 | Outpatient (CLI) | payer MEDICARE, OTHER ==
[~2020-01-17] MED LIST changes: +ALLO100T PO; +CHOL4POW11 PO; +VANC125C3 PO
--- NOTE | 2020-01-17 17:14 | RAD ---
CHEST PA LATERAL Clinical indications: Reason: EDEMA, ABNORMAL CHEST SOUNDS, COUGH / Spl. Instructions: / History: COMPARISON: October 07, 2019. Findings: Small bilateral pleural effusions are seen right greater than left. There is mild bibasilar atelectasis present. No perihilar pulmonary edema is seen. No pneumothorax is evident. The heart size, pulmonary vasculature, mediastinum and both funmilayo are unremarkable. Old healed fracture of the lateral left third rib is seen. Impression: Small bilateral pleural effusions right greater than left. Electronically signed by: Jesus Strauss MD (01/17/2020 5:11 PM) [id number]
== END ==
LOC: DXRAD 10:06
PROVIDERS: ATTEND Physician Assistant Medical
DX: J98.11 Atelectasis (principal); J90 Pleural effusion, not elsewhere classified
CPT/HCPCS: 71046

== ENCOUNTER → 2020-03-02 | Outpatient (CLI) | payer MEDICARE, OTHER ==
--- NOTE | 2020-03-02 13:41 | RAD ---
EXAM: Nuclear gastric emptying scan. HISTORY: Diarrhea. Early satiety. Bloating. COMPARISON: None. TECHNIQUE: Serial static images were obtained over the stomach following oral administration of 2 mCi 99m-Tc sulfur colloid. FINDINGS: The stomach empties into the small bowel without evidence of reflux in the area of the esophagus. There is 40 percent retained tracer activity within stomach at one hour (normal 34.8 percent to 91 percent). There is 30 percent retained tracer activity within stomach at 2 hours (normal 2.7 percent to 60 percent). There is 22 percent retained tracer activity within stomach at 3 hours (normal 0.5 percent to 28 percent). There is 11 percent retained tracer activity within stomach at 4 hours (normal 0.0 percent to 10 percent). The estimated time for half emptying of gastric contents, i.e. 'gastric emptying time' is 52 minutes (normal is 66 +/- 22 minutes). IMPRESSION: Normal gastric emptying time at one hour, 2 hours and 3 hours and normal gastric emptying half-time of 52 minutes. There is slightly delayed gastric emptying at 4 hours. Electronically signed by: Victoria Ballard MD (03/02/2020 1:38 PM) [facility]
== END | disposition home or self-care (01) ==
LOC: NM 08:57
PROVIDERS: ATTEND Physician Assistant Medical
DX: K30 Functional dyspepsia (principal); R19.7 Diarrhea, unspecified
CPT/HCPCS: 78264; A9541

== ENCOUNTER → 2020-03-26 | Outpatient (CLI) | payer MEDICARE, OTHER ==
--- NOTE | 2020-03-26 10:52 | RAD ---
CLINICAL HISTORY: Reason: ABD PAIN AND BLOATING / Spl. Instructions: / History: COMPARISON: None available. TECHNIQUE: Ultrasound of the upper abdomen was performed. FINDINGS: The liver measures 13.4 cm in length in the right mid clavicular line. The hepatic margin is mildly nodular but the the hepatic echogenicity is normal. There are no focal liver lesions. Flow seen within the portal veins. There has been a cholecystectomy. The common bile duct measures 0.7 cm. The spleen is enlarged in size, measuring 14.5 cm. The head and body of the pancreas are unremarkable. The tail is obscured by intestinal gas.. The right kidney measures 9.5 cm in bipolar length. The left kidney measures 9.4 cm in bipolar length. Echogenic appearance of the kidneys bilaterally. No definite renal lesion. No hydronephrosis. Visualized portions of the abdominal aorta and inferior vena cava are unremarkable. There is moderate abdominal ascites. IMPRESSION: 1. Mildly nodular appearance of the liver may be seen with cirrhosis. Changes of the portal hypertension including splenomegaly and abdominal ascites. 2. Echogenic appearance of the kidneys may be seen with medical renal disease. No definite renal lesion or hydronephrosis. Electronically signed by: Goran Lorenz MD (03/26/2020 10:50 AM) [id number]
== END | disposition home or self-care (01) ==
LOC: US 07:38
PROVIDERS: ATTEND Internal Medicine Gastroenterology
DX: R16.0 Hepatomegaly, not elsewhere classified (principal); K76.89 Other specified diseases of liver; R14.0 Abdominal distension (gaseous)
CPT/HCPCS: 76700

== ENCOUNTER → 2020-06-22 | Outpatient (CLI) | payer MEDICARE, OTHER ==
[~2020-06-22] MED LIST changes: -COLC0.6T42 PO; +COLC0.6T45 PO
--- NOTE | 2020-06-25 13:34 | RAD ---
DATE: 06/22/2020 1:34 PM EXAM: MAMMO AMY SCREENING BILATERAL HISTORY: Screening COMPARISON: Bilateral mammograms of 04/06/2019 and 01/20/2018 Bilateral CC and MLO views of the breasts were performed. Bilateral breast tomosynthesis was performed in CC and MLO projections. This study was interpreted with the benefit of Computerized Aided Detection (CAD). FINDINGS: Breast Density: SCATTERED The breast parenchyma shows scattered fibroglandular densities. Breast parenchyma level B Interval thickening of the trabecular markings and skin thickening bilaterally, suggesting bilateral breast edema. No suspicious masses, microcalcifications or architectural distortion is present to suggest malignancy in either breast. The visualized axillae are unremarkable. IMPRESSION: No mammographic evidence of malignancy. BI-RADS CATEGORY: 2 BENIGN FINDING(S) RECOMMENDED FOLLOW-UP: 12M 12 MONTH FOLLOW-UP Annual screening mammography is recommended, unless clinically indicated sooner based on symptoms or change in physical exam. Clinical management of bilateral breast edema, possibly from central venous occlusion or heart failure is recommended. PQRS compliance statement: Patient information was entered into a reminder system with a target due date for the next mammogram. Mammography is a sensitive method for finding small breast cancers, but it does not detect them all and is not a substitute for careful clinical examination. A negative mammogram does not negate a clinically suspicious finding and should not result in delay in biopsying a clinically suspicious abnormality. "Our facility is accredited by the [employer] Mammography Program."
== END ==
LOC: MAMMO 13:11
PROVIDERS: ATTEND Physician Assistant Medical
DX: Z12.31 Encounter for screening mammogram for malignant neoplasm of breast (principal); N64.89 Other specified disorders of breast
CPT/HCPCS: 77063; 77067

== ENCOUNTER → 2021-01-22 | Outpatient (CLI) | payer MEDICARE, OTHER ==
--- NOTE | 2021-01-22 14:10 | RAD ---
EXAM: XR HAND_RIGHT 3 VIEWS 01/22/2021 1:45 PM CLINICAL INDICATION: Right hand: Outstretched hand COMPARISON: None TECHNIQUE: 3 views of the right FINDINGS: The bones are diffusely demineralized. There is an angulated acute fracture of the little finger proximal phalanx. There is severe joint space narrowing throughout the interphalangeal joints with articular erosions and gull-wing deformity. Severe erosions at the thumb MCP joint with pencil i n cup appearance. There is degenerative joint disease with large ossified at the first CMC joint. The re is periarticular soft tissue swelling and diffuse soft tissue swelling of the finger. IMPRESSION: 1. Acute fracture of the little finger proximal phalanx. 2. 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 Severe degenerative joint disease at the first CMC joint. Electronically signed by: Lydia Hernandez MD (01/22/2021 2:08 PM) [id number]
== END ==
LOC: RAD 13:34
PROVIDERS: ATTEND Nurse Practitioner Family
DX: S62.616A Displaced fracture of proximal phalanx of right little finger, initial encounter for closed fracture (principal); S69.91XA Unspecified injury of right wrist, hand and finger(s), initial encounter; M19.041 Primary osteoarthritis, right hand; M79.89 Other specified soft tissue disorders; X58.XXXA Exposure to other specified factors, initial encounter; Y93.89 Activity, other specified; Y92.89 Other specified places as the place of occurrence of the external cause; Y99.8 Other external cause status
CPT/HCPCS: 73130

== ENCOUNTER → 2021-01-29 | Outpatient (CLI) | payer MEDICARE, OTHER ==
--- NOTE | 2021-01-29 13:57 | RAD ---
EXAM: ABDOMEN 2 VIEWS. HISTORY: Constipation. COMPARISON: None. FINDINGS: Supine and upright views of the abdomen are obtained. A peritoneal dialysis catheter loops within the pelvis. There is no pneumoperitoneum. There are no distended small bowel loops or significant air fluid level s. There is gas distally. IMPRESSION: 1. No evidence of obstruction. The amount of colonic stool is not clearly abnormally increased. Electronically signed by: Marilu Rubi MD (01/29/2021 1:55 PM) [facility]
== END ==
LOC: RAD 08:01
PROVIDERS: ATTEND Physician Assistant Medical
DX: K59.00 Constipation, unspecified (principal)
CPT/HCPCS: 74019

== ENCOUNTER 2021-08-30 15:09 | Emergency (ER) | payer MEDICARE, OTHER ==
[~2021-08-30] VITALS: Ht 165.1 cm; Wt 86.3 kg
[~2021-08-30 15:09] MED LIST changes: +ONDA-85 PO; -ONDA8TAB17 PO
[2021-08-30 16:20] LABS: BASO % 1 % (0-3); EOS # 0.1 x10^3/uL (0.0-0.7); EOS % 5 % (0-3); HEMATOCRIT 24.7 % (36.0-47.0); HEMOGLOBIN 8.3 g/dL (12.0-15.5); LYMPH # 0.8 x10^3/uL (1.0-4.8); LYMPH % 27 % (24-48); MEAN CORPUSCULAR HEMOGLOBIN 36 pg (25-35); MEAN CORPUSCULAR HGB CONC 34 g/dL (31-37); MEAN CORPUSCULAR VOLUME 107 fL (79-100); MONO # 0.4 x10^3/uL (0.0-1.1); MONO % 12 % (0-9); NEUT # 1.6 x10^3uL (1.8-7.7); NEUT % 55 % (31-73); PLATELET COUNT 92 x10^3/uL (140-400); RED BLOOD COUNT 2.31 x10^6/uL (3.50-5.40); RED CELL DISTRIBUTION WIDTH 18.7 % (11.5-14.5); WHITE BLOOD COUNT 2.9 x10^3/uL (4.0-11.0)
[2021-08-30 16:28] LABS: CREATININE 3.1 mg/dL (0.6-1.0); GFR 14.7; POTASSIUM 3.1 mmol/L (3.5-5.1)
[2021-08-30 16:33] LABS: ALBUMIN 2.2 g/dL (3.4-5.0); ALBUMIN/GLOBULIN RATIO 0.7 (1.0-1.7); TOTAL BILIRUBIN 0.7 mg/dL (0.2-1.0); TOTAL PROTEIN 5.5 g/dL (6.4-8.2)
--- NOTE | 2021-08-30 17:36 | PHYS DOC ---
Past History Past Surgical History: Cholecystectomy, Hysterectomy, Other Additional Past Surgical Histo: shunt in left arm Alcohol Use: None General Adult EDM: Chief Complaint: ABNORMAL LABS HPI: HPI: 76-year-old female past medical history of ESRD (MWF, last HD today) presents the ED with concern for low hemoglobin (Hg 7) requiring blood transfusion. Patient reports she was called last night by Dr. Cohen and told to come to emergency department. Patient completed her dialysis today. Patient with no associated exertional dyspnea, shortness of breath, melena, hematemesis, epistaxis, vaginal bleeding, hematuria, hematochezia or recent blood loss. Patient with no active complaints and reports she feels well. Review of Systems: Review of Systems: Constitutional: Denies fever or chills Eyes: Denies change in visual acuity HENT: Denies nasal congestion or sore throat Respiratory: Denies cough or shortness of breath Cardiovascular: Denies chest pain or edema GI: Denies bloody stools or diarrhea : Denies hematuria vaginal bleeding Musculoskeletal: Denies back pain or joint pain Integument: Denies rash or diaphoresis Neurologic: Denies headache, focal weakness or sensory changes Endocrine: Denies polyuria or polydipsia Lymphatic: Denies swollen glands Psychiatric: Denies depression or anxiety Allergies: Allergies: Allergies Coded Allergies Type Severity Reaction Last Updated Verified Sulfa (Sulfonamide Antibiotics) Allergy Intermediate 10/26/19 Yes ibuprofen Allergy Unknown 10/26/19 Yes Physical Exam: PE: Constitutional: Well developed, well nourished, no acute distress, non-toxic appearance. HENT: Normocephalic, atraumatic, Eyes: EOMI, conjunctiva normal, no discharge. Neck: Normal range of motion, supple, Cardiovascular: S1/2 present, regular rhythm Lungs & Thorax: Speaking in full sentences, bilateral equal chest rise, no tachypnea or increased work of breathing Abdomen: soft, no tenderness, Skin: Warm, dry, no erythema, no rash. [] Back: No tenderness, no CVA tenderness. [] Extremities: No tenderness, no cyanosis, thrill left arm, equal bilateral lower extremity swelling Neurologic: Alert and oriented X 3, normal motor function, normal sensory function, no focal deficits noted. [] Psychologic: Affect normal, judgement normal, mood normal. [] Current Patient Data: Labs: Laboratory Tests Test 08/30/21 15:50 White Blood Count 2.9 x10^3/uL (4.0-11.0) L Red Blood Count 2.31 x10^6/uL (3.50-5.40) L Hemoglobin 8.3 g/dL (12.0-15.5) L Hematocrit 24.7 % (36.0-47.0) L Mean Corpuscular Volume 107 fL (79-100) H Mean Corpuscular Hemoglobin 36 pg (25-35) H Mean Corpuscular Hemoglobin Concent 34 g/dL (31-37) Red Cell Distribution Width 18.7 % (11.5-14.5) H Platelet Count 92 x10^3/uL (140-400) L Neutrophils (%) (Auto) 55 % (31-73) Lymphocytes (%) (Auto) 27 % (24-48) Monocytes (%) (Auto) 12 % (0-9) H Eosinophils (%) (Auto) 5 % (0-3) H Basophils (%) (Auto) 1 % (0-3) Neutrophils # (Auto) 1.6 x10^3uL (1.8-7.7) L Lymphocytes # (Auto) 0.8 x10^3/uL (1.0-4.8) L Monocytes # (Auto) 0.4 x10^3/uL (0.0-1.1) Eosinophils # (Auto) 0.1 x10^3/uL (0.0-0.7) Basophils # (Auto) 0.0 x10^3/uL (0.0-0.2) Prothrombin Time 10.3 SEC (9.4-11.4) Prothrombin Time INR 1.0 (0.9-1.1) Activated Partial Thromboplast Time 21 SEC (23-33) L Sodium Level 136 mmol/L (136-145) Potassium Level 3.1 mmol/L (3.5-5.1) L Chloride Level 97 mmol/L (98-107) L Carbon Dioxide Level 32 mmol/L (21-32) Anion Gap 7 (6-14) Blood Urea Nitrogen 13 mg/dL (7-20) Creatinine 3.1 mg/dL (0.6-1.0) H Estimated GFR (Cockcroft-Gault) 14.7 BUN/Creatinine Ratio 4 (6-20) L Glucose Level 91 mg/dL (70-99) Calcium Level 8.0 mg/dL (8.5-10.1) L Total Bilirubin 0.7 mg/dL (0.2-1.0) Aspartate Amino Transferase (AST) 24 U/L (15-37) Alanine Aminotransferase (ALT) 27 U/L (14-59) Alkaline Phosphatase 106 U/L (46-116) Total Protein 5.5 g/dL (6.4-8.2) L Albumin 2.2 g/dL (3.4-5.0) L Albumin/Globulin Ratio 0.7 (1.0-1.7) L Vital Signs: Vital Signs Date Time Temp Pulse Resp B/P (MAP) Pulse Ox O2 Delivery O2 Flow Rate FiO2 08/30/21 15:39 98.2 89 16 106/53 (70) 100 Room Air EKG: EKG: [] Radiology/Procedures: Radiology/Procedures: [] Heart Score: C/O Chest Pain: No Risk Factors: Risk Factors: DM, Current or recent (<one month) smoker, HTN, HLP, family history of CAD, obesity. Risk Scores: Score 0 - 3: 2.5% MACE over next 6 weeks - Discharge Home Score 4 - 6: 20.3% MACE over next 6 weeks - Admit for Clinical Observation Score 7 - 10: 72.7% MACE over next 6 weeks - Early Invasive Strategies Course & Med Decision Making: Course & Med Decision Making Pertinent Labs and Imaging studies reviewed. (See chart for details) Encounter for macrocytic, asymptomatic anemia. Hemoglobin today improved from yesterday. No indication for blood transfusion at this time. Patient well- appearing, hemodynamically stable. Will discharge home with strict ED return precautions were given for fever, blood loss or exertional dyspnea. Encouraged urgent outpatient follow-up with PMD for routine care and hematology to consider macrocytic anemia evaluation. Life-threatening processes were considered but are low suspicion at this time, given history, physical exam and ED workup. Pt was educated on all prescription medications and adverse effects. All patient's questions were answered and pt was stable at time of discharge. Life/limb-threatening differential includes but is not limited to, end organ damage/sepsis, trauma/abuse/neglect, neurologic deficit, alcohol/drug ingestion, toxidrome, suicidal/homicidal ideations plans or attempts, psychosis or mental illness resulting in self neglect and inability to care for self. I have spoken with the patient and/or caregivers. I explained the patient's condition, diagnoses and treatment plan based on the information available to me at this time. I have answered the patient and/or caregiver's questions and addressed any concerns. The patient and/or caregivers have a good understanding of patient's diagnosis, condition and treatment plan as can be expected at this point. Vital signs have been stable. Patient's condition is stable and appropriate for discharge from the emergency department. Patient will pursue further outpatient evaluation with primary care physician or other designated or consulting physician as outlined in the discharge instructions. The patient and/or caregivers are agreeable to this plan of care and follow-up instructions have been explained in detail. The patient and/or caregivers have received these instructions in written form and have expressed an understanding of the discharge instructions. The patient and/or caregivers are aware that any significant change of condition or worsening of symptoms rich uld prompt immediate return to this or the closest emergency department or call to 0Ernestine Gordon Disclaimer: Evan Disclaimer: This electronic medical record was generated, in whole or in part, using a voice recognition dictation system. Departure Departure: Impression: Primary Impression: Macrocytic anemia Disposition: HOME / SELF CARE / HOMELESS Condition: STABLE Referrals: MARBELLA BAUMANN (PCP) Follow-up within 1 to 2 weeks for reevaluation Hg/Hct 8.3/24.7 Patient Instructions: Anemia, FAQs Additional Instructions: FOLLOW UP WITH: FOR DEFINITIVE MANAGEMENT of macrocytic anemia Hematology/Oncology [facility] [address] [place] [id number] EMERGENCY DEPARTMENT GENERAL DISCHARGE INSTRUCTIONS Thank you for coming to [facility] (ED) today and trusting us with you care. We trust that you had a positivie experience in our Emergency Department. If you wish to speak to the department management, you may call the director at [phone]. YOUR FOLLOW UP INSTRUCTIONS ARE FOLLOWS: 1. Do you have a private Doctor? If you do not have a private doctor, please ask for a resource list of physicians or clinics that may be able to assist you with follow up care. 2. The Emergency Physician has interpreted your x-rays. The X-Ray specialist will also review them. If there is a change in the findings, you will be notified in 48 hours when at all possible. 3. A lab test or culture has been done, your results will be reviewed and you will be notified if you need a change in treatment. ADDITIONAL INSTRUCTIONS AND INFORMATION: 1. Your care today has been supervised by a physician who is specially trained in emergency care. Many problems require more than one evaluation for a complete diagnosis and treatment. We recommend that you schedule your follow up appointment as recommended to ensure complete treatment of you illness or injury. If you are unable to obtain follow up care and continue to have a problem, or if your condition worsens, we recommend that you return to the ED. 2. We are not able to safely determine your condition over the phone nor are we able to give sound medical advice over the phone. For these safety reasons, if you call for medical advice we will ask you to come to the ED for further evaluation. 3. If you have any questions regarding these discharge instructions please call the ED at [phone]. SAFETY INFORMATION: In the interest of safety, wellness, and injury prevention; we encourage you to wear your sealbelt, if you smoke; quite smoking, and we encourage family to use a protective helmet for bicycling and other sporting events that present an increased risk for head injury. IF YOUR SYMPTOMS WORSEN OR NEW SYMPTOMS DEVELOP, OR YOU HAVE CONCERNS ABOUT YOUR CONDITION; OR IF YOUR CONDITION WORSENS WHILE YOU ARE WAITING FOR YOUR FOLLOW UP APPOINTMENT; EITHER CONTACT YOUR PRIMARY CARE DOCTOR, THE PHYSICIAN WHOSE NAME AND NUMBER YOU WERE GIVEN, OR RETURN TO THE ED IMMEDIATELY. MARBELLA GALICIA DO Aug 30, 2021 17:36
[2021-08-30 18:02] VITALS: BP 108/60
== END 2021-08-30 18:00 | disposition home or self-care (01) ==
LOC: ER 15:09
DX: D53.9 Nutritional anemia, unspecified (principal); N18.6 End stage renal disease; Z99.2 Dependence on renal dialysis; Z88.2 Allergy status to sulfonamides; Z88.6 Allergy status to analgesic agent
CPT/HCPCS: 36415; 80053; 85025; 85610; 85730; 86850; 86900; 86901; 99283